=== PATIENT | male | born 1970 | race Caucasian/White ===

== ENCOUNTER 2020-05-13 09:58 | Emergency (ER) | payer MEDICAID ==
[2020-05-13] MEDS ORDERED: Furosemide 40 MG/4 ML VIAL ONE (10:43)
[2020-05-13] MEDS ORDERED: Furosemide 40 MG/4 ML VIAL IVPUSH ONE (12:01)
[2020-05-13] MEDS ORDERED: Diltiazem 25 MG/5 ML SDV IVPUSH ONE ×2 (12:01→13:25)
[2020-05-13] MEDS ORDERED: Meropenem 1 GM in Sodium Chloride 0.9% 100 ML IV ONE (12:26)
--- NOTE | 2020-05-13 13:36 | EDM.PDOC ---
ED HPI GENERAL MEDICAL PROBLEM - General Chief Complaint: General Stated Complaint: HEART RATE, feels weak Time Seen by Provider: 05/13/20 11:00 Source of Information: Reports: Patient - History of Present Illness Onset: Today, Sudden Onset Date: 05/13/20 Onset Time: 10:00 Duration: Hour(s):, Improving, Other (improved since in the ER) Quality: Reports: Dull Severity: Mild Improves with: Reports: Other (since given medications) Worsens with: Reports: Movement Associated Symptoms: Reports: No Other Symptoms (Given some of his homes medications, and Diltiazem for irregular/irrgeular HR. ) Past Medical History Cardiovascular History: Reports: Afib, Heart Failure - History Comment History Comment: Lower extremity edema, chronic cellulitis infection. Social & Family History - Tobacco Use Tobacco Use Status *Q: Former Tobacco User Used Tobacco, but Quit: Yes Month/Year Tobacco Last Used: 2013 - Caffeine Use Caffeine Use: Reports: Soda - Recreational Drug Use Recreational Drug Use: No ED ROS GENERAL - Review of Systems Review Of Systems: See Below Constitutional: Reports: Weakness HEENT: Reports: No Symptoms Respiratory: Reports: No Symptoms Cardiovascular: Reports: Edema, Palpitations Endocrine: Reports: No Symptoms GI/Abdominal: Reports: No Symptoms : Reports: No Symptoms Skin: Reports: Erythema, Other (cellulitis both LE, seeping) Neurological: Reports: No Symptoms Psychiatric: Reports: No Symptoms Hematologic/Lymphatic: Reports: No Symptoms Immunologic: Reports: No Symptoms ED EXAM, GENERAL - Physical Exam Exam: See Below Exam Limited By: No Limitations General Appearance: Mild Distress Nose: Normal Inspection Throat/Mouth: Normal Inspection Head: Atraumatic, Normocephalic Neck: Normal Inspection Respiratory/Chest: No Respiratory Distress Cardiovascular: Tachycardia, Irregularly Irregular GI/Abdominal: Normal Bowel Sounds, Soft (Male) Exam: Deferred Rectal (Males) Exam: Deferred Extremities: Other (cellulitis both legs) Neurological: Alert, Oriented, CN II-XII Intact Psychiatric: Normal Affect, Normal Mood Skin Exam: Warm, Erythema #1 Interpretation Rhythm: A-Fib (and flutter) Course - Vital Signs Last Recorded V/S: Last Vital Signs Temp 36.7 C 05/13/20 10:45 Pulse 86 05/13/20 11:55 Resp 20 05/13/20 11:55 BP 134/93 H 05/13/20 11:55 Pulse Ox 100 05/13/20 11:55 - Orders/Labs/Meds Orders: Active Orders 24 hr Category Date Time Status EKG Documentation Completion [RC] ASDIRECTED Care 05/13/20 12:02 Active EKG Documentation Completion [RC] ASDIRECTED Care 05/13/20 12:07 Active Metoprolol Tartrate [Lopressor] Med 05/13/20 20:00 Active 100 mg PO Q12HR Medication Orders Metoprolol Tartrate (Lopressor) 100 mg PO Q12HR [place] Last Admin: 05/13/20 10:49 Dose: 100 mg Documented by: WENDY Looneys: Medications Generic Name Dose Route Start Last Admin Trade Name Freq PRN Reason Stop Dose Admin Metoprolol Tartrate 100 mg 05/13/20 20:00 05/13/20 10:49 Lopressor PO 100 mg Q12HR [place] Administration Discontinued Medications Generic Name Dose Route Start Last Admin Trade Name Freq PRN Reason Stop Dose Admin Diltiazem HCl 20 mg 05/13/20 12:01 05/13/20 11:17 Diltiazem IVPUSH 05/13/20 12:02 20 mg ONETIME ONE Administration Diltiazem HCl 20 mg 05/13/20 13:25 Diltiazem IVPUSH 05/13/20 13:26 ONETIME ONE Furosemide Confirm 05/13/20 10:43 05/13/20 12:11 Lasix Administered 05/13/20 10:44 40 mg Dose Administration 40 mg .ROUTE .STK-MED ONE Furosemide 40 mg 05/13/20 12:01 05/13/20 10:48 Lasix IVPUSH 05/13/20 12:02 40 mg NOW ONE Administration Meropenem 1 gm/ Sodium 100 mls @ 200 mls/hr 05/13/20 12:26 05/13/20 12:35 Chloride IV 05/13/20 12:55 200 mls/hr ONETIME ONE Administration Departure - Departure Time of Disposition: 15:00 (Patien refused admission to [place] and cardiology consult) Disposition: Home, Self-Care 01 Condition: Fair Clinical Impression: CHF, Congestive heart failure, Atrial fibrillation and flutter, Cellulitis - Discharge Information *PRESCRIPTION DRUG MONITORING PROGRAM REVIEWED*: Not Applicable *COPY OF PRESCRIPTION DRUG MONITORING REPORT IN PATIENT JEFF: Not Applicable Instructions: Cellulitis, Adult, Atrial Flutter, Heart Failure, Self Care, [id number], Atrial Fibrillation, [id number] Referrals: PCP,None [Primary Care Provider] - Additional Instructions: Follow up in clinic on Saturday. Sepsis Event Note (ED) - Evaluation Sepsis Screening Result: No Definite Risk - Focused Exam Vital Signs: Vital Signs Temp Pulse Pulse Resp BP BP Pulse Ox 05/13/20 11:55 86 20 134/93 H 100 05/13/20 11:15 120 H 15 144/98 H 05/13/20 10:49 124 H 150/97 H 05/13/20 10:45 36.7 C 124 H 25 H 150/97 H 100 05/13/20 10:20 36.6 C 124 H 25 H 150/97 H 100 - My Orders Last 24 Hours: My Active Orders 05/13/20 12:02 EKG Documentation Completion [RC] ASDIRECTED 05/13/20 12:07 EKG Documentation Completion [RC] ASDIRECTED 05/13/20 20:00 Metoprolol Tartrate [Lopressor] 100 mg PO Q12HR - Assessment/Plan Last 24 Hours: My Active Orders 05/13/20 12:02 EKG Documentation Completion [RC] ASDIRECTED 05/13/20 12:07 EKG Documentation Completion [RC] ASDIRECTED 05/13/20 20:00 Metoprolol Tartrate [Lopressor] 100 mg PO Q12HR
[2020-05-13] MEDS ORDERED: Metoprolol Tartrate 100 MG Tab PO SCH (20:00)
== END 2020-05-13 14:20 | disposition home or self-care (01) ==
LOC: LB.ED 09:58
DX: I50.9 Heart failure, unspecified (principal); I48.91 Unspecified atrial fibrillation; I48.92 Unspecified atrial flutter; L03.116 Cellulitis of left lower limb; L03.115 Cellulitis of right lower limb; Z87.891 Personal history of nicotine dependence
CPT/HCPCS: 93005; 96365; 96375; 96376; 99284-25; A9270-GY; J1940; J2185; J3490

== ENCOUNTER 2020-09-13 13:47 | Emergency (ER) | payer MEDICAID ==
--- NOTE | 2020-09-13 14:45 | CR ---
DATE OF SERVICE: 09/13/20 CLINICAL DATA: LOWER EXTREMITY EDEMA Portable chest: Comparison is made to a prior exam dated 19 May 2020. The heart and lungs are stable. No evidence of acute intrathoracic disease. [facility]
--- NOTE | 2020-09-13 14:45 | EDM.PDOC ---
ED HPI GENERAL MEDICAL PROBLEM - General Stated Complaint: WOUND ON BOTH LEGS Time Seen by Provider: 09/13/20 14:00 Source of Information: Reports: Patient History Limitations: Reports: No Limitations - History of Present Illness INITIAL COMMENTS - FREE TEXT/NARRATIVE: 49 year olf male with PMH of afib, htn, LE cellulitis presents to ED with bilateral LE edema, redness and wounds. He was assessed by a home RN and told to cone in to a wounds check. Denies any CP, SOB, N/V/D, cough, fever, urinary issues, GIRON, weakness. He states that yesterday his heart felt strange but that is now resolved. Patient has noted RR at 28, he continues to deny any SOB or CP. Onset: Today Location: Reports: Lower Extremity, Left, Lower Extremity, Right Severity: Moderate Improves with: Reports: None Worsens with: Reports: None Associated Symptoms: Reports: No Other Symptoms - Related Data Home Meds: Home Meds cephALEXin [Keflex] 500 mg PO Q12H 10 Days #20 cap 09/13/20 [Rx] Past Medical History Cardiovascular History: Reports: Afib, Heart Failure - History Comment History Comment: Lower extremity edema, chronic cellulitis infection. Social & Family History - Caffeine Use Caffeine Use: Reports: Soda ED ROS GENERAL - Review of Systems Review Of Systems: See Below Constitutional: Reports: No Symptoms HEENT: Reports: No Symptoms Respiratory: Reports: No Symptoms Cardiovascular: Reports: No Symptoms Endocrine: Reports: No Symptoms GI/Abdominal: Reports: No Symptoms : Reports: No Symptoms Musculoskeletal: Reports: No Symptoms Skin: Reports: Erythema, Wound, Change in Color Neurological: Reports: No Symptoms Psychiatric: Reports: No Symptoms Hematologic/Lymphatic: Reports: No Symptoms Immunologic: Reports: No Symptoms ED EXAM, GENERAL - Physical Exam Exam: See Below Exam Limited By: No Limitations General Appearance: Alert, No Apparent Distress Eye Exam: Bilateral Eye: Normal Inspection Ears: Normal External Exam, Hearing Grossly Normal Nose: Normal Inspection, Normal Mucosa, No Blood Head: Atraumatic Neck: Non-Tender, Full Range of Motion Respiratory/Chest: No Respiratory Distress, Lungs Clear, No Accessory Muscle Use, Decreased Breath Sounds (due to body habitus) Cardiovascular: No Murmur, Irregularly Irregular Peripheral Pulses: 1+: Posterior Tibial (L), Posterior Tibial (R), Dorsalis Pedis (L) (with US), Dorsalis Pedis (R) (with US), 3+: Radial (L), Radial (R) GI/Abdominal: Non-Tender, Distended Back Exam: Normal Inspection, Full Range of Motion. No: CVA Tenderness (R), CVA Tenderness (L) Extremities: Non-Tender, Pedal Edema, Slow Capillary Refill, Redness Neurological: Alert, Oriented, Normal Cognition, Normal Gait Psychiatric: Normal Affect, Normal Mood Skin Exam: Warm, Decubitus (bilateral LE, weeping), Erythema, Wound/Incision Lymphatic: No Adenopathy Course - Vital Signs Last Recorded V/S: Last Vital Signs Temp 98.1 F 09/13/20 14:08 Pulse 118 H 09/13/20 14:08 Resp 22 H 09/13/20 14:08 BP 153/101 H 09/13/20 14:08 Pulse Ox 100 09/13/20 14:08 - Orders/Labs/Meds Orders: Active Orders 24 hr Category Date Time Status EKG Documentation Completion [RC] ASDIRECTED Care 09/13/20 14:11 Ordered EKG 12 Lead [EK] Routine Ther 09/13/20 14:08 Ordered Labs: Laboratory Tests 09/13/20 09/13/20 09/13/20 Range/Units 14:25 14:25 14:25 WBC 6.8 D (4.0-11.0) K/uL RBC 3.79 L (4.50-6.50) M/uL Hgb 12.1 L (13.0-18.0) g/dL Hct 37.5 L (40.0-54.0) % MCV 99 H (76-96) fL MCH 31.9 (27.0-32.0) pg MCHC 32.3 (31.0-35.0) g/dL RDW 16.4 H (11.0-16.0) % Plt Count 234 (150-400) K/uL MPV 9.0 (6.0-10.0) fL Neut % (Auto) 56.4 (45.0-70.0) % Lymph % (Auto) 24.1 (20.0-40.0) % [place] % (Auto) 16.6 H (3.0-10.0) % Eos % (Auto) 2.2 (1.0-5.0) % Baso % (Auto) 0.7 H (0.0-0.5) % Neut # (Auto) 3.81 (2.00-7.50) K/uL Lymph # (Auto) 1.63 (1.50-4.00) K/uL [place] # (Auto) 1.12 H (0.20-0.80) K/uL Eos # (Auto) 0.15 (0.04-0.40) K/uL Baso # (Auto) 0.05 (0.02-0.10) K/uL Sodium 138 (136-145) mmol/L Potassium 3.9 (3.5-5.1) mmol/L Chloride 104 (98-107) mmol/L Carbon Dioxide 26.5 (21.0-32.0) mmol/L Anion Gap 11.4 (5.0-15.0) mmol/L BUN 14 (8-26) mg/dL Creatinine 2.03 H (0.70-1.30) mg/dL Est Cr Clr Drug Dosing TNP Estimated GFR (MDRD) 35 L (>60) MLS/MIN BUN/Creatinine Ratio 6.9 (6-25) Glucose 91 (74-100) mg/dL Calcium 7.8 L (8.5-10.1) mg/dL Total Bilirubin 0.9 (0.0-1.0) mg/dL AST 23 (15-37) U/L ALT 24 (12-78) U/L Alkaline Phosphatase 102 (46-116) U/L Troponin I < 0.017 (0.000-0.060) ng/mL B-Natriuretic Peptide 1657 H D (0-125) pg/mL Total Protein 7.3 (6.4-8.2) g/dL Albumin 2.1 L (3.4-5.0) g/dL Globulin 5.2 H (2.2-4.2) g/dL Albumin/Globulin Ratio 0.4 L (0.8-2.0) Urine Color Urine Appearance (CLEAR) Urine pH (5.0-8.0) Ur Specific Hiko (1.003-1.030) Urine Protein (NEGATIVE) mg/dL Urine Glucose (UA) (NEGATIVE) mg/dL Urine Ketones (NEGATIVE) mg/dL Urine Occult Blood (NEGATIVE) Urine Nitrite (NEGATIVE) Urine Bilirubin (NEGATIVE) Urine Urobilinogen (0.2-1.0) E.U./dL Ur Leukocyte Esterase (NEGATIVE) Urine RBC /HPF Urine WBC /HPF Urine WBC Clumps /HPF Ur Squamous Epith Cells /HPF Urine Bacteria /HPF 09/13/20 Range/Units 15:05 WBC (4.0-11.0) K/uL RBC (4.50-6.50) M/uL Hgb (13.0-18.0) g/dL Hct (40.0-54.0) % MCV (76-96) fL MCH (27.0-32.0) pg MCHC (31.0-35.0) g/dL RDW (11.0-16.0) % Plt Count (150-400) K/uL MPV (6.0-10.0) fL Neut % (Auto) (45.0-70.0) % Lymph % (Auto) (20.0-40.0) % [place] % (Auto) (3.0-10.0) % Eos % (Auto) (1.0-5.0) % Baso % (Auto) (0.0-0.5) % Neut # (Auto) (2.00-7.50) K/uL Lymph # (Auto) (1.50-4.00) K/uL [place] # (Auto) (0.20-0.80) K/uL Eos # (Auto) (0.04-0.40) K/uL Baso # (Auto) (0.02-0.10) K/uL Sodium (136-145) mmol/L Potassium (3.5-5.1) mmol/L Chloride (98-107) mmol/L Carbon Dioxide (21.0-32.0) mmol/L Anion Gap (5.0-15.0) mmol/L BUN (8-26) mg/dL Creatinine (0.70-1.30) mg/dL Est Cr Clr Drug Dosing Estimated GFR (MDRD) (>60) MLS/MIN BUN/Creatinine Ratio (6-25) Glucose (74-100) mg/dL Calcium (8.5-10.1) mg/dL Total Bilirubin (0.0-1.0) mg/dL AST (15-37) U/L ALT (12-78) U/L Alkaline Phosphatase (46-116) U/L Troponin I (0.000-0.060) ng/mL B-Natriuretic Peptide (0-125) pg/mL Total Protein (6.4-8.2) g/dL Albumin (3.4-5.0) g/dL Globulin (2.2-4.2) g/dL Albumin/Globulin Ratio (0.8-2.0) Urine Color Yellow Urine Appearance Cloudy (CLEAR) Urine pH 5.5 (5.0-8.0) Ur Specific Hiko 1.015 (1.003-1.030) Urine Protein 100 H (NEGATIVE) mg/dL Urine Glucose (UA) Negative (NEGATIVE) mg/dL Urine Ketones Negative (NEGATIVE) mg/dL Urine Occult Blood Moderate H (NEGATIVE) Urine Nitrite Negative (NEGATIVE) Urine Bilirubin Negative (NEGATIVE) Urine Urobilinogen 0.2 (0.2-1.0) E.U./dL Ur Leukocyte Esterase Large H (NEGATIVE) Urine RBC 10-20 H /HPF Urine WBC >100 H /HPF Urine WBC Clumps Many /HPF Ur Squamous Epith Cells Moderate /HPF Urine Bacteria Moderate H /HPF Departure - Departure Time of Disposition: 16:02 Disposition: Left Without Being Seen 07 Clinical Impression: Edema of both lower extremities, Encounter for wound care, Primary dressing of wound UTI (urinary tract infection) Qualifiers: Urinary tract infection type: site unspecified Hematuria presence: without hematuria Qualified Code(s): N39.0 - Urinary tract infection, site not specified - Discharge Information *PRESCRIPTION DRUG MONITORING PROGRAM REVIEWED*: Not Applicable *COPY OF PRESCRIPTION DRUG MONITORING REPORT IN PATIENT JEFF: Not Applicable Prescriptions: cephALEXin [Keflex] 500 mg PO Q12H 10 Days #20 cap Instructions: Edema, [id number] Additional Instructions: Return to ED for any increased or new concerning symptoms. 2:30 appointment with Winifred BROOKS. Take 80 mg lasix tomorrow (today and tomorrow). Sepsis Event Note (ED) - Focused Exam Vital Signs: Vital Signs Temp Pulse Resp BP Pulse Ox 09/13/20 14:08 98.1 F 118 H 22 H 153/101 H 100 - My Orders Last 24 Hours: My Active Orders 09/13/20 14:08 EKG 12 Lead [EK] Routine 09/13/20 14:11 EKG Documentation Completion [RC] ASDIRECTED - Assessment/Plan Last 24 Hours: My Active Orders 09/13/20 14:08 EKG 12 Lead [EK] Routine 09/13/20 14:11 EKG Documentation Completion [RC] ASDIRECTED Plan: Spoke with Dr. Jacinto about increaseing lasix for this patient while he has compression dressings on bilateral LE. We will double his PO lasix dose for 2 days, he will take 80mg x2days. Patient's weight pre dressing 330.6, post dressing weight 331.6 dressed . Patient denies any pain in LE. Guille PT has worked with this patient and his wounds he is cleansing and applying profore dressings to bilateral LE. Patient will follow up in clinic on AM to reevaluate dressings and lasix dosage. Patient is agreeable to this plan and verbalized understanding of DC instructions, all questions were answered prior to DC. Patient has a 2:30 appointment with Winifred WALTON to review lasix and Guille will do a dressing change, his home health care nurse will attend the appointment to learn how to dress wounds. Patient and Guille are agreeable to this plan. We will give the patient 80 mg PO lasix prior to DC today, and he was instructed to take 80 mg of his lasix tomorrow. He will return to ED for any increased or new concerning symptoms.
[2020-09-13] MEDS ORDERED: Furosemide 80 MG Tab ONE (16:02)
[2020-09-13] MEDS ORDERED: Furosemide 80 MG Tab PO ONE (16:02)
== END 2020-09-13 16:30 | disposition left against medical advice (07) ==
LOC: LB.ED 13:47
DX: R60.0 Localized edema (principal); N39.0 Urinary tract infection, site not specified; I48.91 Unspecified atrial fibrillation; I11.0 Hypertensive heart disease with heart failure; I50.9 Heart failure, unspecified
CPT/HCPCS: 36415; 71045; 80053; 81001; 83880; 84484; 85025; 93005; 99283; 99284-25; A9270-GY

== ENCOUNTER 2020-10-31 11:10 | Inpatient (IN) | payer MEDICAID ==
[2020-10-31] MEDS ORDERED: Furosemide 40 MG/4 ML VIAL IVPUSH ONE (11:59)
--- NOTE | 2020-10-31 12:04 | EDM.PDOC ---
ED HPI GENERAL MEDICAL PROBLEM - General Chief Complaint: Cardiovascular Problem Stated Complaint: swelling Time Seen by Provider: 10/31/20 11:35 Source of Information: Reports: Patient History Limitations: Reports: No Limitations - History of Present Illness INITIAL COMMENTS - FREE TEXT/NARRATIVE: patient presented to the ER with a generalized edema - reports a h/o CHF for whi ch he is on lasix 80mg daily and spironolactone. also a h/o afib for which he is on metoprolol and Xarelto. Reports that recently, his b/l LEs edema has been getting worse, also edema on scrotum, abdomen and SOB. no CP, fever or chills. - Related Data Allergies Allergy/AdvReac Type Severity Reaction Status Date / Time No Known Allergies Allergy Verified 10/31/20 11:55 Home Meds: Home Meds Amiodarone [Cordarone] 200 mg PO DAILY 10/31/20 [History] Furosemide [Lasix] 80 mg PO DAILY 10/31/20 [History] Metoprolol Succinate [Toprol XL 100mg] 150 mg PO DAILY 10/31/20 [History] Rivaroxaban [Xarelto] 20 mg PO DAILY 10/31/20 [History] Spironolactone [Aldactone] 25 mg PO DAILY 10/31/20 [History] Past Medical History Cardiovascular History: Reports: Afib, Heart Failure, Hypertension Respiratory History: Reports: Asthma Musculoskeletal History: Reports: Osteoarthritis Neurological History: Reports: Neuropathy, Peripheral Dermatologic History: Reports: Venous Stasis Dermatitis - History Comment History Comment: Lower extremity edema, chronic cellulitis infection. Social & Family History - Caffeine Use Caffeine Use: Reports: Soda ED ROS GENERAL - Review of Systems Review Of Systems: See Below Constitutional: Reports: No Symptoms HEENT: Reports: No Symptoms Respiratory: Reports: Shortness of Breath Cardiovascular: Reports: Dyspnea on Exertion, Edema GI/Abdominal: Reports: No Symptoms Musculoskeletal: Reports: No Symptoms Neurological: Reports: No Symptoms ED EXAM, GENERAL - Physical Exam Exam: See Below Exam Limited By: No Limitations General Appearance: Alert, WD/WN Eye Exam: Bilateral Eye: EOMI, PERRL Head: Atraumatic, Normocephalic Respiratory/Chest: No Respiratory Distress, Rales Cardiovascular: Normal Peripheral Pulses, Irregularly Irregular GI/Abdominal: Normal Bowel Sounds, Soft, Non-Tender Extremities: Pedal Edema Neurological: Alert, Oriented, No Motor/Sensory Deficits Skin Exam: Other (b/l +4 pitting edema, scrotal edema) #1 Interpretation EKG Date: 10/31/20 Rhythm: A-Fib Tok: Normal P-Wave: Absent QRS: Normal ST-T: Normal QT: Normal Course - Vital Signs Last Recorded V/S: Last Vital Signs Temp 36.6 C 10/31/20 11:56 Pulse 110 H 10/31/20 11:56 Resp 20 10/31/20 11:56 BP 118/99 H 10/31/20 11:56 Pulse Ox 98 10/31/20 11:56 - Orders/Labs/Meds Orders: Active Orders 24 hr Category Date Time Status EKG Documentation Completion [RC] ASDIRECTED Care 10/31/20 12:13 Active Sodium Chloride 0.9% [Saline Flush] Med 10/31/20 11:59 Active 10 ml FLUSH ASDIRECTED PRN Saline Lock Insert [OM.PC] Routine Oth 10/31/20 11:59 Ordered EKG 12 Lead [EK] Routine Ther 10/31/20 12:13 Ordered Medication Orders Sodium Chloride (Sodium Chloride 0.9% 10 Ml Syringe) 10 ml FLUSH ASDIRECTED PRN PRN Reason: Keep Vein Open Labs: Laboratory Tests 10/31/20 10/31/20 Range/Units 11:53 11:53 WBC 6.9 (4.0-11.0) K/uL RBC 3.45 L (4.50-6.50) M/uL Hgb 11.3 L (13.0-18.0) g/dL Hct 34.8 L (40.0-54.0) % MCV 101 H (76-96) fL MCH 32.8 H (27.0-32.0) pg MCHC 32.5 (31.0-35.0) g/dL RDW 16.5 H (11.0-16.0) % Plt Count 233 (150-400) K/uL MPV 9.3 (6.0-10.0) fL Sodium 136 (136-145) mmol/L Potassium 3.8 (3.5-5.1) mmol/L Chloride 100 (98-107) mmol/L Carbon Dioxide 29.7 (21.0-32.0) mmol/L Anion Gap 10.1 (5.0-15.0) mmol/L BUN 14 (8-26) mg/dL Creatinine 2.43 H D (0.70-1.30) mg/dL Est Cr Clr Drug Dosing 44.15 mL/min Estimated GFR (MDRD) 28 L (>60) MLS/MIN BUN/Creatinine Ratio 5.8 L (6-25) Glucose 123 H (74-100) mg/dL Calcium 7.9 L (8.5-10.1) mg/dL B-Natriuretic Peptide 6241 H D (0-125) pg/mL Meds: Medications Generic Name Dose Route Start Last Admin Trade Name Freq PRN Reason Stop Dose Admin Sodium Chloride 10 ml 10/31/20 11:59 Sodium Chloride 0.9% 10 Ml Syringe FLUSH ASDIRECTED PRN Keep Vein Open Discontinued Medications Generic Name Dose Route Start Last Admin Trade Name Freq PRN Reason Stop Dose Admin Furosemide 40 mg 10/31/20 11:59 10/31/20 12:21 Furosemide 40 Mg/4 Ml Vial IVPUSH 10/31/20 12:00 40 mg NOW ONE Administration Furosemide Confirm 10/31/20 12:28 10/31/20 12:24 Furosemide 40 Mg/4 Ml Vial Administered 10/31/20 12:29 Not Given Dose 40 mg .ROUTE .STK-MED ONE - Re-Assessments/Exams Free Text/Narrative Re-Assessment/Exam: vitals WNL. EKG afib with HR 90. labs - significant for elevation in BNP, and Cr. - know chronic kidney disease - but higher today. IV Lasix 40mg was given - patient had multiple large amount of UOP. discussed with the patient - that given his acute on CKD ( higher Cr than usual ) - I recommend that he be transported to a higher level of care where there is a airline radio operator - patient refused that, and wanted to be admitted to this facility. I discussed with him that we dont have a airline radio operator, but will monitor his kidney function, if got worse with the diuretics- will have to transfer him - he agreed. Departure - Departure Time of Disposition: 13:35 Disposition: Admitted As Inpatient 65 Condition: Fair Clinical Impression: CHF, Congestive heart failure, Anasarca Fluid overload Qualifiers: Hypervolemia type: other Qualified Code(s): E87.79 - Other fluid overload Referrals: Malchow,Winifred Dorothy, [employer] [Primary Care Provider] - Forms: ED Department Discharge Sepsis Event Note (ED) - Evaluation Sepsis Screening Result: No Definite Risk - Focused Exam Vital Signs: Vital Signs Temp Pulse Resp BP Pulse Ox 10/31/20 11:56 36.6 C 110 H 20 118/99 H 98 - Problem List & Annotations (1) CHF, Congestive heart failure SNOMED Code(s): 53094479 Code(s): I50.9 - HEART FAILURE, UNSPECIFIED Status: Chronic Priority: Low Current Visit: Yes (2) Atrial fibrillation and flutter SNOMED Code(s): 387819693 Code(s): I48.91 - UNSPECIFIED ATRIAL FIBRILLATION; I48.92 - UNSPECIFIED ATRIAL FLUTTER Status: Chronic Priority: Medium Current Visit: Yes (3) Edema of both lower extremities SNOMED Code(s): 516589282, 63346231, 622278093 Code(s): R60.0 - LOCALIZED EDEMA Status: Acute Priority: Medium Current Visit: Yes (4) Anasarca SNOMED Code(s): 894082264, 790237606 Code(s): R60.1 - GENERALIZED EDEMA Status: Acute Priority: Medium Current Visit: Yes - Problem List Review Problem List Initiated/Reviewed/Updated: Yes - My Orders Last 24 Hours: My Active Orders 10/31/20 11:59 Sodium Chloride 0.9% [Saline Flush] 10 ml FLUSH ASDIRECTED PRN Saline Lock Insert [OM.PC] Routine 10/31/20 12:13 EKG Documentation Completion [RC] ASDIRECTED EKG 12 Lead [EK] Routine - Assessment/Plan Last 24 Hours: My Active Orders 10/31/20 11:59 Sodium Chloride 0.9% [Saline Flush] 10 ml FLUSH ASDIRECTED PRN Saline Lock Insert [OM.PC] Routine 10/31/20 12:13 EKG Documentation Completion [RC] ASDIRECTED EKG 12 Lead [EK] Routine Assessment:: - admit to the floor - start IV lasix drip - monitor kidney function and electrolytes - resume home meds as before
[2020-10-31] MEDS ORDERED: Furosemide 40 MG/4 ML VIAL ONE (12:28)
[2020-10-31] MEDS ORDERED: Furosemide 20 MG/2 ML VIAL IVPUSH ONE (14:19)
[2020-10-31] MEDS: Amiodarone 200 MG Tab PO SCH (15:48)
[2020-10-31] MEDS: Spironolactone 25 MG Tab PO SCH (15:48)
[2020-10-31] MEDS: Sodium Chloride 0.9% 10 ML Syringe FLUSH PRN (15:51)
[2020-10-31] MEDS ORDERED: Furosemide 40 MG/4 ML VIAL IVPUSH SCH (18:00)
[2020-10-31] MEDS: Furosemide 40 MG/4 ML VIAL IVPUSH SCH (20:20)
[2020-10-31] MEDS: Metoprolol Succinate 25 MG Tab.ER PO SCH (20:28)
[2020-10-31] MEDS: Metoprolol Succinate 100 MG Tab.ER PO SCH (20:28)
[2020-11-01] MEDS: Metoprolol Succinate 100 MG Tab.ER PO SCH (07:51)
[2020-11-01] MEDS: Sodium Chloride 0.9% 10 ML Syringe FLUSH PRN (07:51)
[2020-11-01] MEDS: Amiodarone 200 MG Tab PO SCH (07:51)
[2020-11-01] MEDS: Furosemide 40 MG/4 ML VIAL IVPUSH SCH ×2 (07:52→15:41)
[2020-11-01] MEDS: Spironolactone 25 MG Tab PO SCH (07:52)
[2020-11-01] MEDS: Rivaroxaban 10 MG Tab PO SCH (07:52)
[2020-11-01] MEDS: Metoprolol Succinate 25 MG Tab.ER PO SCH (07:52)
[2020-11-01] MEDS ORDERED: Furosemide 40 MG Tab PO SCH (08:00)
--- NOTE | 2020-11-01 18:09 | PCM.HP.2 ---
H&P History of Present Illness - General Date of Service: 11/01/20 Admit Problem/Dx: Admission Diagnosis/Problem Admission Diagnosis/Problem CHF, Congestive heart failure Source of Information: Patient History Limitations: Reports: No Limitations - History of Present Illness Initial Comments - Free Text/Narative: patient with a h/o CHF and generalized edema who was admitted to the floor yesterday for management of fluids overload status. Reports that he gained about 100+ lbs over the last 2 months - he is on diuretics 80mg PO lasix. Reports swelling of b/l LEs, scrotum and abdomen. Also exertional dyspnea and orthopnea. No fever or chills. Patient was started on IV lasix 80mg BID - and since yesterday he has lost around 18 lbs of weight. His labs yesterday were also noted for elevation of Cr - probably related to volume over load - will monitor daily and hopefully improve with diuresis. Onset of Symptoms: Reports: Gradual Duration of Symptoms: Reports: Week(s): (2) - Related Data Allergies/Adverse Reactions: Allergies Allergy/AdvReac Type Severity Reaction Status Date / Time No Known Allergies Allergy Verified 10/31/20 15:27 Home Medications: Home Meds Amiodarone [Cordarone] 200 mg PO DAILY 10/31/20 [History] Furosemide [Lasix] 80 mg PO DAILY 10/31/20 [History] Metoprolol Succinate [Toprol XL 100mg] 100 mg PO DAILY 10/31/20 [History] Metoprolol Succinate [Toprol XL] 25 mg PO DAILY 10/31/20 [History] Rivaroxaban [Xarelto] 20 mg PO DAILY 10/31/20 [History] Spironolactone [Aldactone] 25 mg PO DAILY 10/31/20 [History] Past Medical History Cardiovascular History: Reports: Afib, Heart Failure, Hypertension Respiratory History: Reports: Asthma Musculoskeletal History: Reports: Osteoarthritis Neurological History: Reports: Neuropathy, Peripheral Dermatologic History: Reports: Venous Stasis Dermatitis - Past Surgical History HEENT Surgical History: Reports: None Cardiovascular Surgical History: Reports: None Musculoskeletal Surgical History: Reports: Knee Replacement - History Comment History Comment: Lower extremity edema, chronic cellulitis infection. Social & Family History - Caffeine Use Caffeine Use: Reports: Soda - Recreational Drug Use Recreational Drug Use: No H&P Review of Systems - Review of Systems: Review Of Systems: See Below General: Reports: Malaise. Denies: Fever, Chills HEENT: Reports: No Symptoms Pulmonary: Reports: Shortness of Breath Cardiovascular: Reports: Dyspnea on Exertion, Orthopnea, PND, Edema Gastrointestinal: Reports: No Symptoms Genitourinary: Reports: Frequency Musculoskeletal: Reports: Back Pain Psychiatric: Reports: No Symptoms Neurological: Reports: No Symptoms Exam - Exam Exam: See Below - Vital Signs Vital Signs: Last Vital Signs Temp 36.7 C 11/01/20 16:00 Pulse 83 11/01/20 16:00 Resp 18 11/01/20 16:00 BP 130/82 11/01/20 16:00 Pulse Ox 98 11/01/20 16:00 Weight: 150.411 kg - Exam General: Alert, Oriented, Cooperative HEENT: PERRLA, Conjunctiva Clear Lungs: Clear to Auscultation, Normal Respiratory Effort Cardiovascular: Regular Rate, Regular Rhythm GI/Abdominal Exam: Normal Bowel Sounds, Soft, Non-Tender (Male) Exam: Scrotal Swelling Back Exam: Normal Inspection Extremities: Normal Inspection, Normal Range of Motion, Non-Tender, Pedal Edema Neuro Extensive - Mental Status: Alert, Oriented x3, Normal Mood/Affect - Patient Data Lab Results Last 24 hrs: Laboratory Results - last 24 hr 11/01/20 Range/Units 08:20 Sodium 140 (136-145) mmol/L Potassium 4.1 (3.5-5.1) mmol/L Chloride 101 (98-107) mmol/L Carbon Dioxide 32.7 H (21.0-32.0) mmol/L Anion Gap 10.4 (5.0-15.0) mmol/L BUN 15 (8-26) mg/dL Creatinine 2.52 H (0.70-1.30) mg/dL Est Cr Clr Drug Dosing 42.58 mL/min Estimated GFR (MDRD) 27 L (>60) MLS/MIN BUN/Creatinine Ratio 6.0 (6-25) Glucose 92 (74-100) mg/dL Calcium 8.0 L (8.5-10.1) mg/dL B-Natriuretic Peptide 5544 H (0-125) pg/mL Result Diagrams: 10/31/20 11:53 11/01/20 08:20 Sepsis Event Note - Evaluation Sepsis Screening Result: No Definite Risk - Focused Exam Vital Signs: Vital Signs Temp Temp Pulse Pulse Resp BP BP 11/01/20 16:00 36.7 C 83 18 130/82 11/01/20 12:00 36.3 C 90 18 139/95 H 11/01/20 07:54 36.5 C 89 18 139/94 H 11/01/20 07:52 89 138/94 H 11/01/20 07:51 89 139/94 H Pulse Ox 11/01/20 16:00 98 11/01/20 12:00 98 11/01/20 07:54 100 11/01/20 07:52 11/01/20 07:51 - Problem List (1) CHF, Congestive heart failure SNOMED Code(s): 76323143 ICD Code: I50.9 - HEART FAILURE, UNSPECIFIED Status: Chronic Priority: Low Current Visit: Yes (2) Atrial fibrillation and flutter SNOMED Code(s): 203286417 ICD Code: I48.91 - UNSPECIFIED ATRIAL FIBRILLATION; I48.92 - UNSPECIFIED ATRIAL FLUTTER Status: Chronic Priority: Medium Current Visit: Yes (3) Edema of both lower extremities SNOMED Code(s): 177837235, 99306946, 245908053 ICD Code: R60.0 - LOCALIZED EDEMA Status: Acute Priority: Medium Current Visit: Yes (4) Anasarca SNOMED Code(s): 462969630, 767216314 ICD Code: R60.1 - GENERALIZED EDEMA Status: Acute Priority: Medium Current Visit: Yes Problem List Initiated/Reviewed/Updated: Yes Orders Last 24hrs: Active Orders 24 hr Category Date Time Status B-TYPE NATRIURETIC PEPTIDE,BNP [CHEM] Routine Lab 11/02/20 07:00 Ordered BASIC METABOLIC PANEL,BMP [CHEM] Routine Lab 11/02/20 07:00 Ordered Furosemide [Lasix] Med 11/01/20 15:00 Active 80 mg IVPUSH BID@0800,1500 Metoprolol Succinate [Toprol XL] Med 10/31/20 18:45 Active 100 mg PO DAILY Metoprolol Succinate [Toprol XL] Med 10/31/20 18:45 Active 25 mg PO DAILY Rivaroxaban [Xarelto] Med 11/01/20 08:00 Active 20 mg PO DAILY Medication Orders Amiodarone HCl (Amiodarone 200 Mg Tab) 200 mg PO DAILY [facility] Last Admin: 11/01/20 07:51 Dose: 200 mg Documented by: Admin: 10/31/20 15:48 Dose: 200 mg Documented by: PATSY Furosemide (Furosemide 40 Mg/4 Ml Vial) 80 mg IVPUSH BID@0800,1500 [facility] Last Admin: 11/01/20 15:41 Dose: 80 mg Documented by: DARREN Metoprolol Succinate (Metoprolol Succinate 100 Mg Tab.Er) 100 mg PO DAILY [facility] Last Admin: 11/01/20 07:51 Dose: 100 mg Documented by: Admin: 10/31/20 20:28 Dose: 100 mg Documented by: BRENDA Metoprolol Succinate (Metoprolol Succinate 25 Mg Tab.Er) 25 mg PO DAILY [facility] Last Admin: 11/01/20 07:52 Dose: 25 mg Documented by: Admin: 10/31/20 20:28 Dose: 25 mg Documented by: BRENDA Rivaroxaban (Rivaroxaban 10 Mg Tab) 20 mg PO DAILY [facility] Last Admin: 11/01/20 07:52 Dose: 20 mg Documented by: BRET Sodium Chloride (Sodium Chloride 0.9% 10 Ml Syringe) 10 ml FLUSH ASDIRECTED PRN PRN Reason: Keep Vein Open Last Admin: 11/01/20 07:51 Dose: 10 ml Documented by: Admin: 10/31/20 15:51 Dose: 10 ml Documented by: PATSY Spironolactone (Spironolactone 25 Mg Tab) 25 mg PO DAILY [facility] Last Admin: 11/01/20 07:52 Dose: 25 mg Documented by: Admin: 10/31/20 15:48 Dose: 25 mg Documented by: PATSY Assessment/Plan Comment:: - resume diuresis: IV lasix 80mg BID and spironolactone. daily weight and Is/Os - h/o afib on Xarelto - resume home meds metoprolol. amiodarone and Xarelto - Acute on CKD - monitor Cr and BUN levels. If no improvement with diuresis - will need a referral to nephrology. - Nebs as needed for SOB. - Mortality Measure Prognosis:: Good
[2020-11-02] MEDS: Spironolactone 25 MG Tab PO SCH (07:32)
[2020-11-02] MEDS: Rivaroxaban 10 MG Tab PO SCH (08:13)
[2020-11-02] MEDS: Metoprolol Succinate 25 MG Tab.ER PO SCH (08:13)
[2020-11-02] MEDS: Metoprolol Succinate 100 MG Tab.ER PO SCH (08:13)
[2020-11-02] MEDS: Amiodarone 200 MG Tab PO SCH (08:13)
[2020-11-02] MEDS: Furosemide 40 MG/4 ML VIAL IVPUSH SCH ×2 (08:14→15:47)
[2020-11-02] MEDS: Potassium Chloride 10 MEQ Tab.ER PO SCH ×2 (12:06→19:32)
--- NOTE | 2020-11-02 12:44 | PCM.PN ---
- General Info Date of Service: 11/02/20 Admission Dx/Problem (Free Text): Admission Diagnosis/Problem Admission Diagnosis/Problem CHF, Congestive heart failure pt current weight loss approx. 25 lb. from admit. resolving upper extremity pitting edema and increased activity tolerance. currently scheduled for appt with Dr. William tomorrow. appetite and fluid intake have been stable. pt also states SOB improving with activity. Functional Status: Reports: Pain Controlled, Tolerating Diet - Review of Systems General: Reports: No Symptoms Pulmonary: Reports: No Symptoms Cardiovascular: Reports: Dyspnea on Exertion, PND, Edema Gastrointestinal: Reports: No Symptoms Genitourinary: Reports: No Symptoms - Patient Data Vitals - Most Recent: Last Vital Signs Temp 97.4 F 11/02/20 12:00 Pulse 94 11/02/20 12:00 Resp 16 11/02/20 12:00 BP 111/72 11/02/20 12:00 Pulse Ox 99 11/02/20 12:00 Weight - Most Recent: 323 lb 6 oz I&O - Last 24 Hours: Intake & Output 11/01/20 11/02/20 11/02/20 22:59 06:59 14:59 Intake Total 2240 1400 Output Total 4300 1200 Balance -2060 200 Lab Results Last 24 Hours: Laboratory Results - last 24 hr 11/02/20 Range/Units 08:24 Sodium 140 (136-145) mmol/L Potassium 3.4 L (3.5-5.1) mmol/L Chloride 100 (98-107) mmol/L Carbon Dioxide 31.9 (21.0-32.0) mmol/L Anion Gap 11.5 (5.0-15.0) mmol/L BUN 17 (8-26) mg/dL Creatinine 2.49 H (0.70-1.30) mg/dL Est Cr Clr Drug Dosing 43.09 mL/min Estimated GFR (MDRD) 27 L (>60) MLS/MIN BUN/Creatinine Ratio 6.8 (6-25) Glucose 88 (74-100) mg/dL Calcium 8.3 L (8.5-10.1) mg/dL B-Natriuretic Peptide 3140 H D (0-125) pg/mL [facility] Results Last 24 Hours: Microbiology 10/31/20 14:55 MRSA Culture - Final Nasal, Unspecified NO MRSA ISOLATED Med Orders - Current: Current Medications Amiodarone HCl (Amiodarone 200 Mg Tab) 200 mg PO DAILY [facility] Last Admin: 11/02/20 08:13 Dose: 200 mg Documented by: Furosemide (Furosemide 40 Mg/4 Ml Vial) 80 mg IVPUSH BID@0800,1500 [facility] Last Admin: 11/02/20 08:14 Dose: 80 mg Documented by: Metoprolol Succinate (Metoprolol Succinate 100 Mg Tab.Er) 100 mg PO DAILY [facility] Last Admin: 11/02/20 08:13 Dose: 100 mg Documented by: Metoprolol Succinate (Metoprolol Succinate 25 Mg Tab.Er) 25 mg PO DAILY [facility] Last Admin: 11/02/20 08:13 Dose: 25 mg Documented by: Potassium Chloride (Potassium Chloride 10 Meq Tab.Er) 10 meq PO BID [facility] Last Admin: 11/02/20 12:06 Dose: 10 meq Documented by: Rivaroxaban (Rivaroxaban 10 Mg Tab) 20 mg PO DAILY [facility] Last Admin: 11/02/20 08:13 Dose: 20 mg Documented by: Sodium Chloride (Sodium Chloride 0.9% 10 Ml Syringe) 10 ml FLUSH ASDIRECTED PRN PRN Reason: Keep Vein Open Last Admin: 11/01/20 07:51 Dose: 10 ml Documented by: Spironolactone (Spironolactone 25 Mg Tab) 25 mg PO DAILY [facility] Last Admin: 11/02/20 07:32 Dose: 25 mg Documented by: Discontinued Medications Furosemide (Furosemide 40 Mg/4 Ml Vial) 40 mg IVPUSH NOW ONE Stop: 10/31/20 12:00 Last Admin: 10/31/20 12:21 Dose: 40 mg Documented by: Furosemide (Furosemide 40 Mg/4 Ml Vial) Confirm Administered Dose 40 mg .ROUTE .STK-MED ONE Stop: 10/31/20 12:29 Last Admin: 10/31/20 12:24 Dose: Not Given Documented by: Furosemide (Furosemide 40 Mg/4 Ml Vial) 80 mg IVPUSH BID [facility] Furosemide (Furosemide 20 Mg/2 Ml Vial) 20 mg IVPUSH NOW ONE Stop: 10/31/20 14:20 Last Admin: 10/31/20 15:48 Dose: 20 mg Documented by: Furosemide (Furosemide 40 Mg Tab) 80 mg PO DAILY [facility] Furosemide (Furosemide 40 Mg/4 Ml Vial) 80 mg IVPUSH BID [facility] Last Admin: 11/01/20 07:52 Dose: 80 mg Documented by: - Exam General: Alert, Oriented, Cooperative, No Acute Distress HEENT: Pupils Equal, Pupils Reactive, EOMI Lungs: Normal Respiratory Effort, Crackles (bilateral lower lobes) Cardiovascular: Regular Rate, Regular Rhythm, No Murmurs GI/Abdominal Exam: Soft, Non-Tender, Hepatomegaly, Splenomegaly Extremities: Pedal Edema, Other (+3 pitting edema to lower extremities up to thighs and hips. +3 pitting edema upper extremities distal to elbow L>R ) Peripheral Pulses: 2+: Radial (L), Radial (R), Posterior Tibial (L), Posterior Tibial (R) Skin: Warm, Dry, Intact Psy/Mental Status: Alert, Normal Affect, Normal Mood - Patient Data Lab Results Last 24 hrs: Laboratory Results - last 24 hr 11/02/20 Range/Units 08:24 Sodium 140 (136-145) mmol/L Potassium 3.4 L (3.5-5.1) mmol/L Chloride 100 (98-107) mmol/L Carbon Dioxide 31.9 (21.0-32.0) mmol/L Anion Gap 11.5 (5.0-15.0) mmol/L BUN 17 (8-26) mg/dL Creatinine 2.49 H (0.70-1.30) mg/dL Est Cr Clr Drug Dosing 43.09 mL/min Estimated GFR (MDRD) 27 L (>60) MLS/MIN BUN/Creatinine Ratio 6.8 (6-25) Glucose 88 (74-100) mg/dL Calcium 8.3 L (8.5-10.1) mg/dL B-Natriuretic Peptide 3140 H D (0-125) pg/mL Result Diagrams: 10/31/20 11:53 11/02/20 08:24 Clifford Results Last 24 hrs: Microbiology 10/31/20 14:55 MRSA Culture - Final Nasal, Unspecified NO MRSA ISOLATED Sepsis Event Note - Evaluation Sepsis Screening Result: No Definite Risk - Focused Exam Vital Signs: Vital Signs Temp Temp Pulse Pulse Resp BP BP 11/02/20 12:00 97.4 F 94 16 111/72 11/02/20 08:13 88 128/82 11/02/20 07:45 97.3 F 88 18 128/82 11/02/20 06:00 97.2 F 101 H 18 118/83 11/02/20 03:29 18 11/02/20 01:35 98.2 F 95 18 117/76 Pulse Ox 11/02/20 12:00 99 11/02/20 08:13 11/02/20 07:45 99 11/02/20 06:00 99 11/02/20 03:29 11/02/20 01:35 99 - Problem List & Annotations (1) Anasarca SNOMED Code(s): 405815732, 157681836 Code(s): R60.1 - GENERALIZED EDEMA Status: Acute Priority: Medium Current Visit: Yes (2) Edema of both lower extremities SNOMED Code(s): 250200306, 66259440, 232836882 Code(s): R60.0 - LOCALIZED EDEMA Status: Acute Priority: Medium Current Visit: Yes (3) Fluid overload SNOMED Code(s): 29176502 Code(s): E87.70 - FLUID OVERLOAD, UNSPECIFIED Status: Acute Current Visit: Yes Qualifiers: Hypervolemia type: other Qualified Code(s): E87.79 - Other fluid overload (4) CHF, Congestive heart failure SNOMED Code(s): 19656240 Code(s): I50.9 - HEART FAILURE, UNSPECIFIED Status: Chronic Priority: Low Current Visit: Yes - Problem List Review Problem List Initiated/Reviewed/Updated: Yes - My Orders Last 24 Hours: My Active Orders 11/02/20 10:45 Potassium Chloride [Klor-Con 10] 10 meq PO BID 11/03/20 05:11 B-TYPE NATRIURETIC PEPTIDE,BNP [CHEM] AM COMPREHENSIVE METABOLIC PN,CMP [CHEM] AM - Plan Plan:: - resume diuresis: IV lasix 80mg BID and spironolactone. daily weight and Is/Os - h/o afib on Xarelto - resume home meds metoprolol. amiodarone and Xarelto - Acute on CKD - monitor Cr and BUN levels. If no improvement with diuresis - will need a referral to nephrology. - Nebs as needed for SOB. 7Jul: change IV lasix to 60mg BID, continue spirinolactone and daily weights with I&O continue to monitor Cr and BUN. no current improvement but no worse either. start Kdur 10meq BID start ambulation/activity check UA for protein plan d/c home tomorrow depending on diuresis and activity.
[2020-11-03] MEDS: Spironolactone 25 MG Tab PO SCH (07:46)
[2020-11-03] MEDS: Rivaroxaban 10 MG Tab PO SCH (07:46)
[2020-11-03] MEDS: Metoprolol Succinate 100 MG Tab.ER PO SCH (07:46)
[2020-11-03] MEDS: Furosemide 40 MG/4 ML VIAL IVPUSH SCH ×2 (07:46→13:28)
[2020-11-03] MEDS: Sodium Chloride 0.9% 10 ML Syringe FLUSH PRN (07:46)
[2020-11-03] MEDS: Metoprolol Succinate 25 MG Tab.ER PO SCH (07:47)
[2020-11-03] MEDS: Potassium Chloride 10 MEQ Tab.ER PO SCH (07:47)
[2020-11-03] MEDS: Amiodarone 200 MG Tab PO SCH (08:03)
--- NOTE | 2020-11-03 11:00 | PCM.DCSUM1 ---
Discharge Summary - Hospital Course Free Text/Narrative:: pt admitted on 31 October for fluid overload secondary to heart failure. original differential included anasarca and on day of discharge it was noted he had hypoalbuminemia, together with the general edema to upper and lower extremities and scrotal edema this is the most likely cause. approximately 30lb weight loss during his hospital course and he states he "feels much better" and is insistent on returning home. activity tolerance has increased with ambulating in room and hallway and reduced discomfort in legs and in feet secondary to reduced fluid load. - Discharge Data Discharge Date: 11/03/20 Discharge Disposition: Home, W Home Health Agency 06 Condition: Good - Referral to Home Health Date of Face to Face Encounter: 11/03/20 Reason for Homebound Status: CHF and anasarca cause difficulty with ambulation, ADLs. Primary Care Physician: Winifred Booker NP Skilled Need: social work, nursing with med set up, leg edema wrap or stocking assistance - Discharge Diagnosis/Problem(s) (1) Anasarca SNOMED Code(s): 572883596, 572166771 ICD Code: R60.1 - GENERALIZED EDEMA Status: Acute Priority: Medium Current Visit: Yes (2) Edema of both lower extremities SNOMED Code(s): 619331585, 26558579, 832056190 ICD Code: R60.0 - LOCALIZED EDEMA Status: Acute Priority: Medium Current Visit: Yes (3) Fluid overload SNOMED Code(s): 41411441 ICD Code: E87.70 - FLUID OVERLOAD, UNSPECIFIED Status: Acute Current Visit: Yes Qualifiers: Hypervolemia type: other Qualified Code(s): E87.79 - Other fluid overload (4) CHF, Congestive heart failure SNOMED Code(s): 22068673 ICD Code: I50.9 - HEART FAILURE, UNSPECIFIED Status: Chronic Priority: Low Current Visit: Yes - Patient Instructions Diet: Low Sodium, Anti-Inflammatory, Limited Carb Diet, Other: high protein, high fiber Activity: As Tolerated, Elevate Extremity Driving: May Drive Today Showering/Bathing: May Shower - Discharge Plan *PRESCRIPTION DRUG MONITORING PROGRAM REVIEWED*: Not Applicable *COPY OF PRESCRIPTION DRUG MONITORING REPORT IN PATIENT JEFF: Not Applicable Home Medications: Home Meds Amiodarone [Cordarone] 200 mg PO DAILY 10/31/20 [History] Furosemide [Lasix] 60 mg PO BID 10/31/20 [History] Metoprolol Succinate [Toprol XL 100mg] 100 mg PO DAILY 10/31/20 [History] Metoprolol Succinate [Toprol XL] 25 mg PO DAILY 10/31/20 [History] Rivaroxaban [Xarelto] 20 mg PO DAILY 10/31/20 [History] Spironolactone [Aldactone] 25 mg PO DAILY 10/31/20 [History] Oxygen Therapy Mode: Room Air Forms: ED Department Discharge Referrals: Winifred Booker NP [Primary Care Provider] - - Discharge Summary/Plan Comment DC Time >30 min.: Yes Discharge Summary/Plan Comment: discharge home with continued home health nursing and SW. daily weights. change in lasix to 60mg BID for 7 days or until changed by PCP. high protein diet, high fiber diet, low sugar and sodium diet. - General Info Date of Service: 11/03/20 Admission Dx/Problem (Free Text: Admission Diagnosis/Problem Admission Diagnosis/Problem CHF, Congestive heart failure pt current weight loss approx. 30 lb. from admit. resolving upper extremity pitting edema and increased activity tolerance. currently scheduled for appt with Winifred Booker next week SatNovember 09. appetite and fluid intake have been stable. pt also states SOB improving with activity. ROM excercises started yesterday to LUE and notable change in fluid status here. pt denies fever, chills, SOB, chest pain, lightheadedness. Functional Status: Reports: Pain Controlled - Review of Systems General: Reports: No Symptoms HEENT: Reports: No Symptoms Pulmonary: Reports: No Symptoms Cardiovascular: Reports: Dyspnea on Exertion (pt states greatly improved since admit), PND, Edema Gastrointestinal: Reports: No Symptoms Genitourinary: Reports: No Symptoms Musculoskeletal: Reports: No Symptoms Neurological: Reports: No Symptoms - Patient Data Vitals - Most Recent: Last Vital Signs Temp 97.4 F 11/03/20 08:00 Pulse 102 H 11/03/20 08:00 Resp 18 11/03/20 08:00 BP 117/84 11/03/20 08:00 Pulse Ox 95 11/03/20 08:00 Weight - Most Recent: 320 lb I&O - Last 24 hours: Intake & Output 07/11/1611/03/20 11/03/20 22:59 06:59 14:59 Intake Total 1974 800 Output Total 2049 1100 Balance -75 -300 Lab Results - Last 24 hrs: Laboratory Results - last 24 hr 11/02/20 11/03/20 Range/Units 17:20 08:13 Sodium 138 (136-145) mmol/L Potassium 3.5 (3.5-5.1) mmol/L Chloride 101 (98-107) mmol/L Carbon Dioxide 30.5 (21.0-32.0) mmol/L Anion Gap 10.0 (5.0-15.0) mmol/L BUN 18 (8-26) mg/dL Creatinine 2.52 H (0.70-1.30) mg/dL Est Cr Clr Drug Dosing 42.58 mL/min Estimated GFR (MDRD) 27 L (>60) MLS/MIN BUN/Creatinine Ratio 7.1 (6-25) Glucose 92 (74-100) mg/dL Calcium 7.9 L (8.5-10.1) mg/dL Total Bilirubin 0.9 (0.0-1.0) mg/dL AST 25 (15-37) U/L ALT 21 (12-78) U/L Alkaline Phosphatase 94 (46-116) U/L B-Natriuretic Peptide 1943 H D (0-125) pg/mL Total Protein 6.6 (6.4-8.2) g/dL Albumin 1.7 L (3.4-5.0) g/dL Globulin 4.9 H (2.2-4.2) g/dL Albumin/Globulin Ratio 0.4 L (0.8-2.0) Urine Color Yellow Urine Appearance Clear (CLEAR) Urine pH 7.5 (5.0-8.0) Ur Specific [place] 1.020 (1.003-1.030) Urine Protein Negative (NEGATIVE) mg/dL Urine Glucose (UA) Negative (NEGATIVE) mg/dL Urine Ketones Negative (NEGATIVE) mg/dL Urine Occult Blood Small H (NEGATIVE) Urine Nitrite Negative (NEGATIVE) Urine Bilirubin Negative (NEGATIVE) Urine Urobilinogen 0.2 (0.2-1.0) E.U./dL Ur Leukocyte Esterase Moderate H (NEGATIVE) Urine RBC 0-5 H /HPF Urine WBC 0-5 H /HPF Ur Squamous Epith Cells Few /HPF Urine Bacteria Few /HPF ILEANA Results - Last 24 hrs: Microbiology 10/31/20 14:55 MRSA Culture - Final Nasal, Unspecified NO MRSA ISOLATED Med Orders - Current: Current Medications Amiodarone HCl (Amiodarone 200 Mg Tab) 200 mg PO DAILY [facility] Last Admin: 11/03/20 08:03 Dose: 200 mg Documented by: Furosemide (Furosemide 40 Mg/4 Ml Vial) 60 mg IVPUSH BID@0800,1500 [facility] Last Admin: 11/03/20 07:46 Dose: 60 mg Documented by: Metoprolol Succinate (Metoprolol Succinate 100 Mg Tab.Er) 100 mg PO DAILY [facility] Last Admin: 11/03/20 07:46 Dose: 100 mg Documented by: Metoprolol Succinate (Metoprolol Succinate 25 Mg Tab.Er) 25 mg PO DAILY [facility] Last Admin: 11/03/20 07:47 Dose: 25 mg Documented by: Potassium Chloride (Potassium Chloride 10 Meq Tab.Er) 10 meq PO BID [facility] Last Admin: 11/03/20 07:47 Dose: 10 meq Documented by: Rivaroxaban (Rivaroxaban 10 Mg Tab) 20 mg PO DAILY [facility] Last Admin: 11/03/20 07:46 Dose: 20 mg Documented by: Sodium Chloride (Sodium Chloride 0.9% 10 Ml Syringe) 10 ml FLUSH ASDIRECTED PRN PRN Reason: Keep Vein Open Last Admin: 11/03/20 07:46 Dose: 10 ml Documented by: Spironolactone (Spironolactone 25 Mg Tab) 25 mg PO DAILY [facility] Last Admin: 11/03/20 07:46 Dose: 25 mg Documented by: Discontinued Medications Furosemide (Furosemide 40 Mg/4 Ml Vial) 40 mg IVPUSH NOW ONE Stop: 10/31/20 12:00 Last Admin: 10/31/20 12:21 Dose: 40 mg Documented by: Furosemide (Furosemide 40 Mg/4 Ml Vial) Confirm Administered Dose 40 mg .ROUTE .STK-MED ONE Stop: 10/31/20 12:29 Last Admin: 10/31/20 12:24 Dose: Not Given Documented by: Furosemide (Furosemide 40 Mg/4 Ml Vial) 80 mg IVPUSH BID [facility] Furosemide (Furosemide 20 Mg/2 Ml Vial) 20 mg IVPUSH NOW ONE Stop: 10/31/20 14:20 Last Admin: 10/31/20 15:48 Dose: 20 mg Documented by: Furosemide (Furosemide 40 Mg Tab) 80 mg PO DAILY [facility] Furosemide (Furosemide 40 Mg/4 Ml Vial) 80 mg IVPUSH BID [facility] Last Admin: 11/01/20 07:52 Dose: 80 mg Documented by: Furosemide (Furosemide 40 Mg/4 Ml Vial) 80 mg IVPUSH BID@0800,1500 [facility] Last Admin: 11/02/20 08:14 Dose: 80 mg Documented by: - Exam General: Reports: Alert, Oriented, Cooperative, No Acute Distress HEENT: Reports: Pupils Equal, Pupils Reactive, EOMI Lungs: Reports: Clear to Auscultation Cardiovascular: Reports: Regular Rate, Regular Rhythm, No Murmurs, Other (peripheral edema +3 pitting to lower extremities. +1-2 pitting to upper extremities) GI/Abdominal Exam: Normal Bowel Sounds, Soft, Non-Tender, Hepatomegaly, Splenomegaly Extremities: Non-Tender, Normal Capillary Refill, Pedal Edema Skin: Reports: Warm, Dry, Intact Neurological: Reports: No New Focal Deficit, Normal Gait Psy/Mental Status: Reports: Alert, Normal Affect, Normal Mood
== END 2020-11-03 15:00 | disposition home health service (06) | DRG 292 ==
LOC: LB.ED 11:10 → LB.MS 13:39
PROVIDERS: ADMIT Surgery; ATTEND Surgery
DX: I13.0 Hypertensive heart and chronic kidney disease with heart failure and stage 1 through stage 4 chronic kidney disease, or unspecified chronic kidney disease (principal); I48.92 Unspecified atrial flutter; I50.9 Heart failure, unspecified; N50.89 Other specified disorders of the male genital organs; I48.91 Unspecified atrial fibrillation; J45.909 Unspecified asthma, uncomplicated; M19.90 Unspecified osteoarthritis, unspecified site; Z20.822 Contact with and (suspected) exposure to COVID-19; G62.9 Polyneuropathy, unspecified; I87.2 Venous insufficiency (chronic) (peripheral); Z96.659 Presence of unspecified artificial knee joint; N18.9 Chronic kidney disease, unspecified; E88.09 Other disorders of plasma-protein metabolism, not elsewhere classified; Z79.899 Other long term (current) drug therapy
CPT/HCPCS: 36415; 80048; 80053; 81001; 83880; 85027; 87070; 93005; 96374; 96376; 99285-25; A9270-GY; J1940; U0002

== ENCOUNTER 2020-11-22 15:13 | Emergency (ER) | payer MEDICAID ==
--- NOTE | 2020-11-22 17:26 | EDM.PDOC ---
ED HPI GENERAL MEDICAL PROBLEM - General Chief Complaint: General Stated Complaint: GENERAL Time Seen by Provider: 11/22/20 16:25 - History of Present Illness INITIAL COMMENTS - FREE TEXT/NARRATIVE: Pt comes to ER with C/O gaining 10 lbs over the last couple days. He has mild SOB and his lower legs are an inch bigger, measured by home health. He has Hx of CHF, A-Fib - Obesity - Kidney disease. - Related Data Allergies Allergy/AdvReac Type Severity Reaction Status Date / Time No Known Allergies Allergy Verified 10/31/20 15:27 Home Meds: Home Meds Amiodarone [Cordarone] 200 mg PO DAILY 10/31/20 [History] Furosemide [Lasix] 40 mg PO DAILY 10/31/20 [History] Rivaroxaban [Xarelto] 20 mg PO DAILY 10/31/20 [History] Spironolactone [Aldactone] 25 mg PO DAILY 10/31/20 [History] Metoprolol Succinate [Toprol XL 100mg] 100 mg PO DAILY tab.er 11/03/20 [Rx] Metoprolol Succinate [Toprol XL] 25 mg PO DAILY tab.er 11/03/20 [Rx] Potassium Chloride [Klor-Con 10] 10 meq PO BID 30 Days #60 tab.er 11/03/20 [Rx] Past Medical History Cardiovascular History: Reports: Afib, Heart Failure, Hypertension Respiratory History: Reports: Asthma Musculoskeletal History: Reports: Osteoarthritis Neurological History: Reports: Neuropathy, Peripheral Dermatologic History: Reports: Venous Stasis Dermatitis - Past Surgical History HEENT Surgical History: Reports: None Cardiovascular Surgical History: Reports: None Musculoskeletal Surgical History: Reports: Knee Replacement - History Comment History Comment: Lower extremity edema, chronic cellulitis infection. Social & Family History - Tobacco Use Tobacco Use Status *Q: Never Tobacco User Second Hand Smoke Exposure: No - Caffeine Use Caffeine Use: Reports: Soda ED ROS GENERAL - Review of Systems Review Of Systems: Comprehensive ROS is negative, except as noted in HPI. Constitutional: Reports: Weight Gain (of 10 lbs.) Respiratory: Reports: Other (Mild SOB.) Musculoskeletal: Reports: Other (lower leg swelling and redness.) ED EXAM, GENERAL - Physical Exam Exam: See Below Respiratory/Chest: Other (scattered rales. ) Neurological: Other (Both lower legs are swollen and red. skin is intact and non tender to touch. Looks chronic.) Course - Vital Signs Last Recorded V/S: Last Vital Signs Temp 98.0 F 11/22/20 16:00 Pulse 108 H 11/22/20 16:00 Resp 20 11/22/20 16:00 BP 122/78 11/22/20 16:00 Pulse Ox 99 11/22/20 16:00 - Orders/Labs/Meds Orders: Active Orders 24 hr Category Date Time Status Chest 1V Frontal [CR] Stat Exams 11/22/20 16:08 Taken Labs: Laboratory Tests 11/22/20 11/22/20 11/22/20 Range/Units 16:15 16:15 16:15 WBC 7.6 (4.0-11.0) K/uL RBC 3.14 L (4.50-6.50) M/uL Hgb 10.2 L (13.0-18.0) g/dL Hct 31.6 L (40.0-54.0) % MCV 101 H (76-96) fL MCH 32.5 H (27.0-32.0) pg MCHC 32.3 (31.0-35.0) g/dL RDW 16.8 H (11.0-16.0) % Plt Count 258 (150-400) K/uL MPV 8.4 (6.0-10.0) fL Neut % (Auto) 50.5 (45.0-70.0) % Lymph % (Auto) 28.7 (20.0-40.0) % [place] % (Auto) 16.6 H (3.0-10.0) % Eos % (Auto) 3.7 (1.0-5.0) % Baso % (Auto) 0.5 (0.0-0.5) % Neut # (Auto) 3.82 (2.00-7.50) K/uL Lymph # (Auto) 2.17 (1.50-4.00) K/uL [place] # (Auto) 1.26 H (0.20-0.80) K/uL Eos # (Auto) 0.28 (0.04-0.40) K/uL Baso # (Auto) 0.04 (0.02-0.10) K/uL Sodium 138 (136-145) mmol/L Potassium 4.5 (3.5-5.1) mmol/L Chloride 100 (98-107) mmol/L Carbon Dioxide 28.6 (21.0-32.0) mmol/L Anion Gap 13.9 (5.0-15.0) mmol/L BUN 34 H D (8-26) mg/dL Creatinine 2.97 H (0.70-1.30) mg/dL Est Cr Clr Drug Dosing TNP Estimated GFR (MDRD) 22 L (>60) MLS/MIN BUN/Creatinine Ratio 11.4 (6-25) Glucose 99 (74-100) mg/dL Calcium 7.9 L (8.5-10.1) mg/dL Total Bilirubin 0.5 D (0.0-1.0) mg/dL AST 38 H (15-37) U/L ALT 36 (12-78) U/L Alkaline Phosphatase 101 (46-116) U/L B-Natriuretic Peptide 2282 H (0-125) pg/mL Total Protein 7.1 (6.4-8.2) g/dL Albumin 1.8 L (3.4-5.0) g/dL Globulin 5.3 H (2.2-4.2) g/dL Albumin/Globulin Ratio 0.3 L (0.8-2.0) - Re-Assessments/Exams Free Text/Narrative Re-Assessment/Exam: Discussed lab results with pt. Jaye 2282 - GFR is 22, and getting worse. Creat 2.97 - BUN 34. 11/22/20 17:26 Departure - Departure Time of Disposition: 17:20 Disposition: Home, Self-Care 01 Condition: Fair Clinical Impression: Kidney disease CHF (congestive heart failure) Qualifiers: Heart failure type: unspecified Heart failure chronicity: acute on chronic Qualified Code(s): I50.9 - Heart failure, unspecified - Discharge Information *PRESCRIPTION DRUG MONITORING PROGRAM REVIEWED*: Not Applicable *COPY OF PRESCRIPTION DRUG MONITORING REPORT IN PATIENT JEFF: Not Applicable Referrals: Winifred Booker NP [Primary Care Provider] - Additional Instructions: Discussed tx options - Stay here, be transferred, or increase his Lasix at home. He wants to go home and take more Lasix. I will increase it to 80 mg bid for 2 days. He needs to follow up in the clinic in 2 days. Continue with lower leg braces. I stressed he needs to see Nephrology SHANNAN because of worsening Kidney Dz. Sepsis Event Note (ED) - Evaluation Sepsis Screening Result: No Definite Risk - Focused Exam Vital Signs: Vital Signs Temp Pulse Resp BP Pulse Ox 11/22/20 16:00 98.0 F 108 H 20 122/78 99 - My Orders Last 24 Hours: My Active Orders 11/22/20 16:08 Chest 1V Frontal [CR] Stat - Assessment/Plan Last 24 Hours: My Active Orders 11/22/20 16:08 Chest 1V Frontal [CR] Stat
--- NOTE | 2020-11-23 09:54 | CR ---
Date of Service: 11/22/20 Clinical Data: weight gain - SOB. AP CHEST: Comparison is made to a prior exam dated 09/13/20. The heart size is normal. The lungs are clear. No pneumothorax. No pleural effusions. No evidence of acute intrathoracic disease. [id number] MTDD
== END 2020-11-22 17:22 | disposition home or self-care (01) ==
LOC: LB.ED 15:13
DX: I11.0 Hypertensive heart disease with heart failure (principal); I50.9 Heart failure, unspecified; N28.9 Disorder of kidney and ureter, unspecified; I48.91 Unspecified atrial fibrillation; Z79.01 Long term (current) use of anticoagulants; Z79.899 Other long term (current) drug therapy
CPT/HCPCS: 36415; 71045; 80053; 83880; 85025; 99285-25

== ENCOUNTER 2021-01-19 09:13 | Day surgery (SDC) | payer MEDICAID ==
[~2021-01-19 09:13] MED LIST: Metoclopramide 10 MG/2 ML SDV IV PRN
[2021-01-19] MEDS: Sodium Chloride 0.9% 1,000 ML IV SCH (09:43)
[2021-01-19] MEDS ORDERED: Propofol 1,000 MG/100 ML SDV ONE (11:00)
--- NOTE | 2021-01-19 14:01 | OR ---
DATE OF OPERATION: 01/19/2021 SURGEON: Jay Juarez MD PREOPERATIVE DIAGNOSIS: Positive Cologuard test. POSTOPERATIVE DIAGNOSIS: Positive Cologuard test. PROCEDURE: Colonoscopy with polypectomy and biopsy. ANESTHESIA: MAC. ESTIMATED BLOOD LOSS: Minimal. COMPLICATIONS: None. INDICATION FOR THE PROCEDURE: The patient is a 50-year-old male with no previous colonoscopies. He did have a Cologuard test which was positive. He was brought to the OR today for colonoscopy. DESCRIPTION OF THE PROCEDURE: Informed consent was obtained with the patient. The patient was taken to the operating room, placed on table in the left lateral decubitus position. Monitored anesthesia care was administered. Digital rectal exam performed, it was normal. Colonoscope was then advanced through the anus, directed towards the cecum. Cecum was reached and identified by appendiceal orifice and ileocecal valve where the sigmoid and descending colon did have some difficulty getting around that corner as colon was not easily distensible. We did switch to a ped's scope, easily able to negotiate through here. On the way out, did have a small 1 cm pedunculated polyp in the proximal descending colon. This was removed with hot snare, polypectomy and retrieved. Also, had irritated looking polyp at about 40 cm. This is around the area where it was difficult to distend the colon, unable to get a good look around this pedunculated polyp. Biopsy was taken. This may be more inflammatory with cold forceps. The remainder of the colon was otherwise unremarkable. Rectum was otherwise unremarkable. Colonoscope was then withdrawn. FINDINGS: Descending colon and sigmoid colon polyp at 40 cm. RECOMMENDATIONS: We will follow up on pathology. If any adenoma to the sigmoid polyp, would need a repeat scope with polypectomy. Otherwise, we would recommend repeat surveillance colonoscopy in 3 years due to size of polyp. RAJESH/DINESH /[id number]
== END 2021-01-19 13:25 | disposition home or self-care (01) ==
LOC: LB.SDS 09:13
PROVIDERS: ATTEND Surgery
DX: D12.4 Benign neoplasm of descending colon (principal); D12.5 Benign neoplasm of sigmoid colon; I48.91 Unspecified atrial fibrillation; I11.0 Hypertensive heart disease with heart failure; I50.9 Heart failure, unspecified; J45.909 Unspecified asthma, uncomplicated
CPT/HCPCS: 88305; J2704; J7030

== ENCOUNTER 2021-03-24 18:07 | Emergency (ER) | payer MEDICAID ==
[2021-03-24] MEDS: Sodium Chloride 0.9% 1,000 ML IV ONE ×2 (18:30→18:50)
[2021-03-24] MEDS: Piperacillin/Tazobactam 4.5 GM in Sodium Chloride 0.9% 100 ML IV SCH (18:49)
[2021-03-24] MEDS ORDERED: fentaNYL 100 MCG/2 ML SDV IVPUSH ONE (19:00)
[2021-03-24] MEDS: Clindamycin Phosphate 900 MG/6 ML SDV IV ONE (19:31)
[2021-03-24] MEDS: Norepinephrine 4 MG in Dextrose 5% in Water 246 ML IV SCH ×2 (21:15)
--- NOTE | 2021-03-24 21:29 | EDM.PDOC ---
ED HPI GENERAL MEDICAL PROBLEM - General Chief Complaint: Respiratory Problem Stated Complaint: unwell, nauseous Time Seen by Provider: 03/24/21 18:07 Source of Information: Reports: Patient, EMS History Limitations: Reports: No Limitations - History of Present Illness INITIAL COMMENTS - FREE TEXT/NARRATIVE: 50-year-old male presents to the ED via EMS secondary to home health asking for assistance for generalized weakness. Patient has a steady decline in his overall health over the past few years. This episode of illness has been going on approximately 1 week to 1-1/2 weeks. Patient is not taking his medication since Saturday. Patient had decreased oral intake, fatigue, shortness of breath and feeling of having a fever. Patient was unable to get out of his chair ton ight which is the reason EMS was summoned. Patient is extremely short of breath and unable to answer a lot of questions, but he does deny chest pain, loss of consciousness, trauma, diarrhea/constipation black tarry stool, nausea and vomiting. - Related Data Allergies Allergy/AdvReac Type Severity Reaction Status Date / Time No Known Allergies Allergy Verified 03/24/21 19:21 Home Meds: Home Meds Rivaroxaban [Xarelto] 20 mg PO DAILY 10/31/20 [History] Albuterol Sulfate 2.5 mg IH Q4H PRN 03/24/21 [History] Loperamide [Imodium] 4 mg PO Q6H PRN 03/24/21 [History] Multivit-Min/Folic/Vit K/Lycop [Men's Multivitamin Tablet] 1 each PO DAILY 03/24/21 [History] Potassium Chloride [Klor-Con 10] 20 meq PO BID 03/24/21 [History] Torsemide 40 mg PO DAILY 03/24/21 [History] dilTIAZem HCL [Dilt-XR] 120 mg PO DAILY 03/24/21 [History] Past Medical History - Past Health History Medical/Surgical History: Denies Medical/Surgical History Cardiovascular History: Reports: Afib, Heart Failure, Hypertension Respiratory History: Reports: Asthma Musculoskeletal History: Reports: Osteoarthritis Neurological History: Reports: Neuropathy, Peripheral Dermatologic History: Reports: Venous Stasis Dermatitis - Past Surgical History HEENT Surgical History: Reports: None Cardiovascular Surgical History: Reports: None Respiratory Surgical History: Reports: None Neurological Surgical History: Reports: None Musculoskeletal Surgical History: Reports: Knee Replacement - History Comment History Comment: Lower extremity edema, chronic cellulitis infection. Social & Family History - Caffeine Use Caffeine Use: Reports: Soda ED ROS GENERAL - Review of Systems Review Of Systems: Unable To Obtain Reason Not Obtained: Patient's SOB, slurred speech, stabilization efforts Constitutional: Reports: Malaise, Weakness, Fatigue, Night Sweats, Decreased Appetite Respiratory: Reports: Shortness of Breath, Wheezing, Cough Cardiovascular: Reports: Lightheadedness, Orthopnea. Denies: Chest Pain Endocrine: Reports: Fatigue GI/Abdominal: Reports: Abdominal Pain, Decreased Appetite. Denies: Cons tipation, Diarrhea, Nausea, Vomiting Skin: Reports: Other (Abdominal skin heat, redness, pain mostly in the right lower quadrant) Neurological: Reports: Confusion, Dizziness Psychiatric: Reports: No Symptoms ED EXAM, GENERAL - Physical Exam Exam: See Below Free Text/Narrative:: 50-year-old male found semifowler position in trauma bay 3 brought in by EMS. Patient is in distress secondary to respiratory and circulatory status. Patient is alert and oriented 3 of 3 GCS 4 5 6. No obvious trauma noted speaking in 2- 3 word sentences. Audible gurgling sounds at bedside. Exam Limited By: No Limitations General Appearance: Alert, WD/WN, Severe Distress, Obese Eye Exam: Bilateral Eye: EOMI, PERRL Ears: Normal External Exam, Hearing Grossly Normal Throat/Mouth: Normal Lips, No Airway Compromise, Other (Mouth is dry, patient has extremely poor dentition) Head: Atraumatic, Normocephalic Neck: Normal Inspection, Non-Tender, Other (Trachea is midline, no subcutaneous air ). No: Lymphadenopathy (R), Lymphadenopathy (L) Respiratory/Chest: Chest Non-Tender, Respiratory Distress, Decreased Breath Sounds, Crackles, Rhonchi Cardiovascular: Tachycardia, Irregularly Irregular, Other (+3 pedal edema bilateral) GI/Abdominal: Distended, Rigid, Tender (Right lower quadrant, left lower quadrant), Mass (Right lower quadrant), Other (Subcutaneous air right lower quadrant) (Male) Exam: Other (Fecal matter contaminating the entire area of the penis and scrotum, no subcu air felt in the area of the groin or scrotum, no open or obvious signs of Fabian's gangrene) Back Exam: Other (Unable to visualize due to patient size and inability to move due to stabilization efforts) Extremities: Pedal Edema (+3 bilateral signs of venous stasis), Mottled (Bilateral lower leg feet), Pallor Neurological: Alert, Oriented, CN II-XII Intact, Normal Cognition Psychiatric: Normal Affect, Normal Mood Skin Exam: Dry, Intact, Mottled, Pallor Lymphatic: No Adenopathy #1 Interpretation EKG Date: 03/24/21 (A. fib with RVR at a rate 130-160, without ectopy) Course - Orders/Labs/Meds Orders: Active Orders 24 hr Category Date Time Status Chest 1V Frontal [CR] Stat Exams 03/24/21 18:25 Taken Chest Abdomen Pelvis wo Cont [CT] Stat Exams 03/24/21 19:14 Taken CULTURE BLOOD [BC] Stat Lab 03/24/21 18:24 Ordered CULTURE BLOOD [BC] Stat Lab 03/24/21 18:27 Ordered Norepinephrine [Levophed] 4 mg Med 03/24/21 21:30 Ordered Dextrose 5% in Water 246 ml IV TITRATE Piperacillin/Tazobactam [Zosyn] 4.5 gm Med 03/24/21 18:30 Active Sodium Chloride 0.9% [Normal Saline] 100 ml IV Q6H EKG 12 Lead [EK] Routine Ther 03/24/21 18:24 Ordered Medication Orders Piperacillin Sod/Tazobactam (Sod 4.5 gm/ Sodium Chloride) 100 mls @ 200 mls/hr IV Q6H SALENA Last Admin: 03/24/21 18:49 Dose: 200 mls/hr Documented by: WON Norepinephrine Bitartrate 4 mg (/ Dextrose/Water) 250 mls @ 15 mls/hr IV TITRATE SALENA; Protocol Labs: Laboratory Tests 03/24/21 03/24/21 03/24/21 Range/Units 18:24 18:26 18:50 WBC 23.5 H* D (4.0-11.0) K/uL RBC 3.24 L (4.50-6.50) M/uL Hgb 10.1 L (13.0-18.0) g/dL Hct 30.6 L (40.0-54.0) % MCV 94 (76-96) fL MCH 31.2 (27.0-32.0) pg MCHC 33.0 (31.0-35.0) g/dL RDW 17.0 H (11.0-16.0) % Plt Count 250 (150-400) K/uL MPV 9.2 (6.0-10.0) fL Neut % (Auto) 79.5 H (45.0-70.0) % Lymph % (Auto) 10.5 L (20.0-40.0) % [place] % (Auto) 9.7 (3.0-10.0) % Eos % (Auto) 0.3 L (1.0-5.0) % Baso % (Auto) 0.0 (0.0-0.5) % Neut # (Auto) 18.68 H (2.00-7.50) K/uL Lymph # (Auto) 2.48 (1.50-4.00) K/uL [place] # (Auto) 2.29 H (0.20-0.80) K/uL Eos # (Auto) 0.06 (0.04-0.40) K/uL Baso # (Auto) 0.01 L (0.02-0.10) K/uL Sodium 138 (136-145) mmol/L Potassium 4.9 (3.5-5.1) mmol/L Chloride 104 (98-107) mmol/L Carbon Dioxide 23.3 (21.0-32.0) mmol/L Anion Gap 15.6 H (5.0-15.0) mmol/L BUN 36 H D (8-26) mg/dL Creatinine 4.26 H* D (0.70-1.30) mg/dL Est Cr Clr Drug Dosing TNP Estimated GFR (MDRD) 15 L (>60) MLS/MIN BUN/Creatinine Ratio 8.5 (6-25) Glucose 102 H (74-100) mg/dL Lactic Acid (0.4-2.0) mmol/L Calcium 7.5 L (8.5-10.1) mg/dL Total Bilirubin 1.0 D (0.0-1.0) mg/dL AST 18 (15-37) U/L ALT 12 (12-78) U/L Alkaline Phosphatase 216 H (46-116) U/L Troponin I (0.000-0.060) ng/mL Total Protein 5.5 L (6.4-8.2) g/dL Albumin 1.0 L (3.4-5.0) g/dL Globulin 4.5 H (2.2-4.2) g/dL Albumin/Globulin Ratio 0.2 L (0.8-2.0) SARS CoV-2 RNA Rapid ROE Negative 03/24/21 03/24/21 Range/Units 18:50 18:50 WBC (4.0-11.0) K/uL RBC (4.50-6.50) M/uL Hgb (13.0-18.0) g/dL Hct (40.0-54.0) % MCV (76-96) fL MCH (27.0-32.0) pg MCHC (31.0-35.0) g/dL RDW (11.0-16.0) % Plt Count (150-400) K/uL MPV (6.0-10.0) fL Neut % (Auto) (45.0-70.0) % Lymph % (Auto) (20.0-40.0) % [place] % (Auto) (3.0-10.0) % Eos % (Auto) (1.0-5.0) % Baso % (Auto) (0.0-0.5) % Neut # (Auto) (2.00-7.50) K/uL Lymph # (Auto) (1.50-4.00) K/uL [place] # (Auto) (0.20-0.80) K/uL Eos # (Auto) (0.04-0.40) K/uL Baso # (Auto) (0.02-0.10) K/uL Sodium (136-145) mmol/L Potassium (3.5-5.1) mmol/L Chloride (98-107) mmol/L Carbon Dioxide (21.0-32.0) mmol/L Anion Gap (5.0-15.0) mmol/L BUN (8-26) mg/dL Creatinine (0.70-1.30) mg/dL Est Cr Clr Drug Dosing Estimated GFR (MDRD) (>60) MLS/MIN BUN/Creatinine Ratio (6-25) Glucose (74-100) mg/dL Lactic Acid 6.1 H (0.4-2.0) mmol/L Calcium (8.5-10.1) mg/dL Total Bilirubin (0.0-1.0) mg/dL AST (15-37) U/L ALT (12-78) U/L Alkaline Phosphatase (46-116) U/L Troponin I < 0.017 (0.000-0.060) ng/mL Total Protein (6.4-8.2) g/dL Albumin (3.4-5.0) g/dL Globulin (2.2-4.2) g/dL Albumin/Globulin Ratio (0.8-2.0) SARS CoV-2 RNA Rapid ROE Meds: Medications Generic Name Dose Route Start Last Admin Trade Name Freq PRN Reason Stop Dose Admin Piperacillin Sod/Tazobactam 100 mls @ 200 mls/hr 03/24/21 18:30 03/24/21 18:49 Sod 4.5 gm/ Sodium Chloride IV 200 mls/hr Q6H SALENA Administration Norepinephrine Bitartrate 4 mg 250 mls @ 15 mls/hr 03/24/21 21:30 / Dextrose/Water IV TITRATE SALENA Protocol 4 MCG/MIN Discontinued Medications Generic Name Dose Route Start Last Admin Trade Name Freq PRN Reason Stop Dose Admin Clindamycin Phosphate 900 mg 03/24/21 18:28 03/24/21 19:31 Clindamycin Phosphate 900 Mg/6 Ml Sdv IV 03/24/21 18:29 900 mg ONETIME ONE Administration Sodium Chloride 1,000 mls @ 999 mls/hr 03/24/21 18:26 03/24/21 18:30 Normal Saline IV 03/24/21 19:26 999 mls/hr .BOLUS ONE Administration Vancomycin HCl 2 gm/ Sodium 250 mls @ 167 mls/hr 03/24/21 18:27 03/24/21 18:58 Chloride IV 03/24/21 19:56 167 mls/hr ONETIME ONE Administration Sodium Chloride 1,000 mls @ 999 mls/hr 03/24/21 18:40 03/24/21 18:50 Normal Saline IV 03/24/21 19:40 999 mls/hr .BOLUS ONE Administration Departure - Departure Time of Disposition: 21:50 Disposition: DC/Tfer to Acute Hospital 02 Condition: Poor Clinical Impression: Atrial fibrillation and flutter, Abscess, Septicemia - Discharge Information *PRESCRIPTION DRUG MONITORING PROGRAM REVIEWED*: No *COPY OF PRESCRIPTION DRUG MONITORING REPORT IN PATIENT JEFF: No Referrals: PCP,None [Primary Care Provider] - Forms: ED Department Discharge, Interfacility Transfer VANESSAZULEYKA Sepsis Event Note (ED) - Evaluation Current Stage of Sepsis: Septic Shock Possible Source of Sepsis: Skin/Soft Tissue - Focused Exam Sepsis Event Note Statement: Focused Sepsis Exam Completed Vital Signs: See records Respiratory Effort Without Exertion: Labored, Orthopnea, Other (see below) (Gurgling) Heart Sounds: Distant, Muffled Capillary Refill, Detail: Greater than (>) 2 Seconds Pulse Description: 1+ Thready Peripheral Pulse Location: Radial Skin Exam (Focused Sepsis): Pallor, Mottling Date Exam was Performed: 03/24/21 Time Exam was Performed: 18:10 - Bedside Monitoring Bedside Ultrasound Performed: No Fluid Bolus Goal: Patient received 3 L normal saline Passive Leg Raise/Fluid Bolus: Fluid Responsive Date Bedside Monitoring was Performed: 03/24/21 Time Bedside Monitoring was Performed: 21:47 - My Orders Last 24 Hours: My Active Orders 03/24/21 18:24 CULTURE BLOOD [BC] Stat EKG 12 Lead [EK] Routine 03/24/21 18:25 Chest 1V Frontal [CR] Stat 03/24/21 18:27 CULTURE BLOOD [BC] Stat 03/24/21 18:30 Piperacillin/Tazobactam [Zosyn] 4.5 gm Sodium Chloride 0.9% [Normal Saline] 100 ml IV Q6H 03/24/21 19:14 Chest Abdomen Pelvis wo Cont [CT] Stat 03/24/21 21:30 Norepinephrine [Levophed] 4 mg Dextrose 5% in Water 246 ml IV TITRATE - Assessment/Plan Last 24 Hours: My Active Orders 03/24/21 18:24 CULTURE BLOOD [BC] Stat EKG 12 Lead [EK] Routine 03/24/21 18:25 Chest 1V Frontal [CR] Stat 03/24/21 18:27 CULTURE BLOOD [BC] Stat 03/24/21 18:30 Piperacillin/Tazobactam [Zosyn] 4.5 gm Sodium Chloride 0.9% [Normal Saline] 100 ml IV Q6H 03/24/21 19:14 Chest Abdomen Pelvis wo Cont [CT] Stat 03/24/21 21:30 Norepinephrine [Levophed] 4 mg Dextrose 5% in Water 246 ml IV TITRATE Assessment:: 1. Sepsis 2. Cellulitis with abscess measuring approximately 3.6 x 8.3 cm with subcutaneous air worrisome for necrotizing fasciitis 3. Shortness of breath 4. Hypotension 5. Kidney failure 6. A. fib with RVR Plan: Airwaypatent Breathinglabored, gurgling addressed with nasal cannula O2 Circulationrapid heart rate A. fib, hypotension addressed with fluid bolus 3 L, Levophed titrated to maintain blood pressure, Disabilityalert and oriented through 3 GCS 4 5 6 E johnathan notified RN and MD to consult through patient care, ABC, history, exam, labs, EKG, IV x3 to peripheral IVs in the shoulders bilateral 1 IO tibial plateau, normal saline boluses, vancomycin, clindamycin, Zosyn, Levophed, chest x-ray, CT, critical finding abscess with subcutaneous air, placement for ICU was located at [facility], fixed wing aircraft was summoned from [place] for transport, guardian unavailable, patient transferred to flight crew. Patient in need of higher level of care, patient was initially fluid responsive to the first 3 L, but then developed soft pressures again and Levophed was initiated. Significant lab findings: WBC 23.5 Hemoglobin 10.1 BUN 36 Creatinine 4.26 GFR 15 Lactic acid 6.1 Calcium 7.5 Alk phos 216 Troponin negative Covid negative Significant imaging findings: Superior to the bladder there is a fluid-filled collection measuring 13.6 x 8.3 cm extending from the mid abdomen into the subcutaneous tissues near the umbilicus which is in the open wound. There is air and fluid within the space consistent with an abscess. Throughout the ventral abdomen wall there is extensive subcutaneous emphysema worrisome for gas-forming infection worrisome for necrotizing fasciitis. Hepatic steatosis Left kidney atrophy. Left kidney severe hydronephrosis
--- NOTE | 2021-03-25 10:06 | CR ---
DATE OF SERVICE: 03/24/2021 CLINICAL DATA: Tachycardia. AP CHEST: Comparison is made to a prior exam dated 11/22/2020. The heart and lungs are stable. No evidence of acute intrathoracic disease. [id number] [facility]
--- NOTE | 2021-03-25 10:19 | CT ---
DATE OF SERVICE: 03/24/2021 CLINICAL DATA: Sepsis w/ subQ air in abd. UNENHANCED CHEST CT: Multislice acquisition without IV contrast was performed. No priors. Motion artifact degrades study quality. The lungs are clear. No pneumothorax. No pleural effusions. The heart size is normal. No pericardial effusion. No aortic aneurysm. No hilar or mediastinal adenopathy. There is degenerative disc disease throughout the thoracic spine. There subcutaneous emphysema throughout the upper abdominal wall. There is diffuse fatty infiltration of the liver. UNENHANCED ABDOMEN AND PELVIC CT: Multislice acquisition through the abdomen and pelvis without IV or oral contrast was performed. No priors. There is diffuse fatty infiltration of the liver. No focal hepatic lesions. The gallbladder appears normal. The spleen appears normal. The pancreas appears normal. The right and left adrenals appear normal. There is marked atrophy of the left kidney. The right kidney appears normal. There is a small amount of fluid within the bladder. It appears normal. There is a gas and fluid filled mass within the abdomen anteriorly. It measures 15 cm in its maximum dimension. It extends to the mid sigmoid colon. No soft tissue plane defining it from the sigmoid colon. It also extends into the anterior abdominal wall through a wide mouthed ventral hernia. There is extensive soft tissue emphysema throughout the anterior abdominal wall. This most likely represents an infectious process. The possibility of diverticulitis with a diverticular abscess should be considered. There is also a defect noted within the anterior abdominal wall consistent with an incision site or a fistula. No dilated loops of bowel. No adenopathy. No aortic aneurysm. IMPRESSION: Abnormal exam. See above. Patient's physician was notified of the findings by telephone and virtual radiologic preliminary radiology report. [id number] [facility]
== END 2021-03-24 22:33 ==
LOC: LB.ED 18:07
DX: A41.9 Sepsis, unspecified organism (principal); L02.91 Cutaneous abscess, unspecified; I48.91 Unspecified atrial fibrillation; I11.0 Hypertensive heart disease with heart failure; I50.9 Heart failure, unspecified; Z79.01 Long term (current) use of anticoagulants; Z79.899 Other long term (current) drug therapy; Z20.822 Contact with and (suspected) exposure to COVID-19
CPT/HCPCS: 36415; 71045; 71250; 74176; 80053; 83605; 84484; 85025; 87040; 87635; 93005; 96365; 96367; 96368; 99285; A0425; A0429; J2543; J3370; J3490; J7030; J7050; J7060; U0002

== ENCOUNTER 2021-08-11 14:23 | Observation (INO) | payer MEDICAID ==
[2021-08-11] MEDS ORDERED: Albuterol 0.083% 2.5 MG/3 ML Neb Soln INH PRN (19:16)
[2021-08-11] MEDS ORDERED: Nystatin Topical Powder 15 GM Bottle TOP PRN (19:18)
[2021-08-11] MEDS ORDERED: Acetaminophen 500 MG Tab PO SCH (20:00)
[2021-08-11] MEDS ORDERED: Non-Formulary Medication 1 Each (Diclofenac Sodium [Voltaren 1% Gel] 100 GM Tube) TOP SCH (20:00)
[2021-08-11] MEDS ORDERED: Potassium Chloride 10 MEQ Tab.ER PO SCH (20:00)
[2021-08-11] MEDS: RIVAROXABAN 15 MG PO SCH (20:09)
[2021-08-11] MEDS: Potassium Chloride 20 MEQ Tab.ER **OWN MED PO SCH ×2 (20:10→20:11)
[2021-08-11] MEDS: DILTIAZEM PO SCH (20:10)
[2021-08-11] MEDS: Acetaminophen 500 MG Tab **OWN MED PO SCH (20:11)
[2021-08-11] MEDS: TIZANIDINE 2 MG PO PRN (20:12)
[2021-08-12] MEDS: Potassium Chloride 20 MEQ Tab.ER **OWN MED PO SCH ×2 (07:34→16:59)
[2021-08-12] MEDS: Polyethylene Glycol 3350 Powder 17 GM Packet PO SCH (07:34)
[2021-08-12] MEDS: Multivitamins with Iron/Calcium/Folic Acid/Minerals Tab PO SCH (07:34)
[2021-08-12] MEDS: Acetaminophen 500 MG Tab **OWN MED PO SCH ×3 (07:35→23:54)
[2021-08-12] MEDS: METOLAZONE 2.5 MG PO SCH (07:35)
[2021-08-12] MEDS: DILTIAZEM PO SCH ×2 (07:35→20:21)
[2021-08-12] MEDS: Torsemide 20 MG Tab **OWN MED PO SCH (07:37)
[2021-08-12] MEDS: Pantoprazole 40 MG Tab.CR **OWN MED PO SCH (07:38)
[2021-08-12] MEDS: Ferrous Sulfate 325 MG Tab **OWN MED PO SCH (07:38)
[2021-08-12] MEDS: RIVAROXABAN 15 MG PO SCH (17:15)
[2021-08-12] MEDS: TIZANIDINE 2 MG PO PRN (23:55)
[2021-08-13] MEDS: Pantoprazole 40 MG Tab.CR **OWN MED PO SCH (07:10)
[2021-08-13] MEDS: Polyethylene Glycol 3350 Powder 17 GM Packet PO SCH (07:39)
[2021-08-13] MEDS: Multivitamins with Iron/Calcium/Folic Acid/Minerals Tab PO SCH (07:40)
[2021-08-13] MEDS: Acetaminophen 500 MG Tab **OWN MED PO SCH ×3 (09:20→19:25)
[2021-08-13] MEDS: Torsemide 20 MG Tab **OWN MED PO SCH (09:22)
[2021-08-13] MEDS: DILTIAZEM PO SCH ×2 (09:22→19:25)
[2021-08-13] MEDS: METOLAZONE 2.5 MG PO SCH (09:58)
[2021-08-13] MEDS: Ferrous Sulfate 325 MG Tab **OWN MED PO SCH (09:58)
[2021-08-13] MEDS: Potassium Chloride 20 MEQ Tab.ER **OWN MED PO SCH ×2 (09:58→17:35)
[2021-08-13] MEDS: RIVAROXABAN 15 MG PO SCH (17:36)
[2021-08-13] MEDS: Menthol/Zinc Oxide Ointment 113 GM Tube TOP PRN (22:30)
[2021-08-14] MEDS: Menthol/Zinc Oxide Ointment 113 GM Tube TOP PRN (06:33)
[2021-08-14] MEDS: Potassium Chloride 20 MEQ Tab.ER **OWN MED PO SCH ×2 (09:17→16:34)
[2021-08-14] MEDS: METOLAZONE 2.5 MG PO SCH (09:18)
[2021-08-14] MEDS: Pantoprazole 40 MG Tab.CR **OWN MED PO SCH (09:19)
[2021-08-14] MEDS: Torsemide 20 MG Tab **OWN MED PO SCH (09:20)
[2021-08-14] MEDS: TIZANIDINE 2 MG PO PRN (09:20)
[2021-08-14] MEDS: DILTIAZEM PO SCH ×2 (09:21→20:12)
[2021-08-14] MEDS: Ferrous Sulfate 325 MG Tab **OWN MED PO SCH (09:29)
[2021-08-14] MEDS: Polyethylene Glycol 3350 Powder 17 GM Packet PO SCH (09:30)
[2021-08-14] MEDS: Acetaminophen 500 MG Tab **OWN MED PO SCH ×3 (09:30→20:12)
[2021-08-14] MEDS: Multivitamins with Iron/Calcium/Folic Acid/Minerals Tab PO SCH (09:30)
[2021-08-14] MEDS: RIVAROXABAN 15 MG PO SCH (17:05)
[2021-08-15] MEDS: Acetaminophen 500 MG Tab **OWN MED PO SCH (07:22)
[2021-08-15] MEDS: Potassium Chloride 20 MEQ Tab.ER **OWN MED PO SCH (07:23)
[2021-08-15] MEDS: Ferrous Sulfate 325 MG Tab **OWN MED PO SCH (07:23)
[2021-08-15] MEDS: Pantoprazole 40 MG Tab.CR **OWN MED PO SCH (07:23)
[2021-08-15] MEDS: DILTIAZEM PO SCH (07:24)
[2021-08-15] MEDS: Torsemide 20 MG Tab **OWN MED PO SCH (07:24)
[2021-08-15] MEDS: METOLAZONE 2.5 MG PO SCH (07:25)
[2021-08-15] MEDS: Polyethylene Glycol 3350 Powder 17 GM Packet PO SCH (07:26)
[2021-08-15 07:27] VITALS: BP 120/86; PULSE 67
[2021-08-15] MEDS: Multivitamins with Iron/Calcium/Folic Acid/Minerals Tab PO SCH (11:02)
== END 2021-08-15 11:50 | disposition home or self-care (01) ==
LOC: LB.ED 14:23 → LB.MS 16:16
PROVIDERS: ADMIT Surgery; ATTEND Surgery
DX: S31.109A Unspecified open wound of abdominal wall, unspecified quadrant without penetration into peritoneal cavity, initial encounter (principal); I11.0 Hypertensive heart disease with heart failure; I48.91 Unspecified atrial fibrillation; Z79.01 Long term (current) use of anticoagulants; Z79.899 Other long term (current) drug therapy; Z87.19 Personal history of other diseases of the digestive system; Z87.39 Personal history of other diseases of the musculoskeletal system and connective tissue; X58.XXXA Exposure to other specified factors, initial encounter; Z20.822 Contact with and (suspected) exposure to COVID-19
CPT/HCPCS: 36415; 80048; 80053; 81001; 85025; 99217; 99219; 99225; A9270-GY; G0378; U0002

== ENCOUNTER 2022-02-18 14:00 | Inpatient (IN) | payer MEDICAID ==
[2022-02-18] MEDS ORDERED: Sodium Chloride 0.9% 1,000 ML IV ONE (14:29)
[2022-02-18 15:11] LABS: ESTIMATED GFR 14 mL/min (>60)
[2022-02-18] MEDS ORDERED: Vancomycin 2 GM in Sodium Chloride 0.9% 500 ML IV ONE (16:00)
[2022-02-18] MEDS: Cefepime 2 GM in Sodium Chloride 0.9% 50 ML IV SCH (16:30)
[2022-02-18] MEDS: Sodium Chloride 0.9% 1,000 ML IV SCH (16:45)
[2022-02-18] MEDS ORDERED: Albuterol 0.083% 2.5 MG/3 ML Neb Soln NEB PRN (18:50)
[2022-02-18] MEDS: Potassium Chloride 10 MEQ Tab.ER PO SCH (20:10)
[2022-02-18] MEDS ORDERED: Albumin 25% 12.5 GM/50 ML BAG IV ONE (23:24)
[2022-02-18] MEDS: Norepinephrine 4 MG in Dextrose 5% in Water 246 ML IV SCH ×2 (23:25)
[2022-02-18] MEDS ORDERED: Albumin 25% 50 ML ONE (23:28)
[2022-02-19] MEDS: Norepinephrine 4 MG in Dextrose 5% in Water 246 ML IV SCH ×2 (07:59)
[2022-02-19] MEDS ORDERED: Pantoprazole 40 MG Tab.CR PO SCH (08:00)
[2022-02-19] MEDS ORDERED: Metolazone 5 MG Tab PO SCH (08:00)
[2022-02-19] MEDS ORDERED: Multivitamins with Iron/Calcium/Folic Acid/Minerals Tab PO SCH (08:00)
[2022-02-19] MEDS ORDERED: Torsemide 20 MG Tab PO SCH (08:00)
[2022-02-19] MEDS ORDERED: [UNRECOGNIZED DRUG - REMARK] SCH (08:00)
[2022-02-19] MEDS: Sodium Chloride 0.9% 1,000 ML IV SCH (08:01)
[2022-02-19] MEDS: Potassium Chloride 10 MEQ Tab.ER PO SCH ×2 (08:06→19:49)
[2022-02-19] MEDS ORDERED: Sodium Chloride 0.9% 500 ML IV ONE ×2 (14:01→15:59)
[2022-02-19] MEDS ORDERED: Albumin 25% 12.5 GM/50 ML BAG IV ONE ×2 (14:03→16:10)
[2022-02-19] MEDS ORDERED: metroNIDAZOLE/Normal Saline 100 ML IV SCH (15:15)
[2022-02-19] MEDS ORDERED: Pantoprazole 40 MG Vial IVPUSH SCH (15:30)
[2022-02-19] MEDS ORDERED: Furosemide 40 MG/4 ML VIAL IVPUSH SCH (15:45)
[2022-02-19] MEDS ORDERED: Albumin 25% 12.5 GM/100 ML BAG IV SCH (16:00)
[2022-02-19] MEDS ORDERED: Furosemide 40 MG/4 ML VIAL ONE (16:56)
[2022-02-19] MEDS: Cefepime 2 GM in Sodium Chloride 0.9% 50 ML IV SCH (17:04)
[2022-02-19] MEDS ORDERED: Rivaroxaban 10 MG Tab PO SCH (18:00)
[2022-02-19] MEDS ORDERED: Potassium Chloride 10 MEQ Tab.ER ONE (19:44)
== END 2022-02-19 22:00 | DRG 871 ==
LOC: LB.ED 14:00 → LB.MS 18:36
PROVIDERS: ADMIT Nurse Practitioner Family; ATTEND Nurse Practitioner Family
DX: A41.9 Sepsis, unspecified organism (principal); E43 Unspecified severe protein-calorie malnutrition; J18.9 Pneumonia, unspecified organism; R65.21 Severe sepsis with septic shock; I13.0 Hypertensive heart and chronic kidney disease with heart failure and stage 1 through stage 4 chronic kidney disease, or unspecified chronic kidney disease; N17.9 Acute kidney failure, unspecified; N30.01 Acute cystitis with hematuria; L03.115 Cellulitis of right lower limb; L03.116 Cellulitis of left lower limb; K63.2 Fistula of intestine; E66.01 Morbid (severe) obesity due to excess calories; I50.9 Heart failure, unspecified; N18.9 Chronic kidney disease, unspecified; I48.91 Unspecified atrial fibrillation; M19.90 Unspecified osteoarthritis, unspecified site; G62.9 Polyneuropathy, unspecified; Z96.659 Presence of unspecified artificial knee joint; I87.2 Venous insufficiency (chronic) (peripheral); Z20.822 Contact with and (suspected) exposure to COVID-19; Z79.899 Other long term (current) drug therapy; Z79.01 Long term (current) use of anticoagulants
CPT/HCPCS: 36415; 51701; 51702; 71045; 71250; 74176; 80053; 80202; 81001; 83605; 83690; 83735; 83880; 85025; 87040; 87086; 99222; 99238; A9270-GY; C9113; J0692; J1940; J3370; J3490; J7030; J7040; J7060; P9047; U0002